=== PATIENT | female | born 1940 | race Caucasian/White ===

== ENCOUNTER 2023-03-31 16:47 | Emergency (ER) | payer MEDICARE, MEDICAID, SELFPAY ==
[2023-03-31 16:50] VITALS: BP 155/85; PULSE 108; RESP 16; TEMP 36.7; O2SAT 98; BMI 24.7
--- NOTE | 2023-03-31 17:04 | ECG_ITS ---
[facility] Test Date: 2023-03-31 Pat Name: Jamie Tracy Department: Room: Gender: Female Manager Care Management: : 1940 Requested By: Romeo Shaffer Order Number: [id number] Jesica MD: Luis Eduardo Ott M.D. Measurements Intervals [place] Rate: 108 P: 76 NM: 144 QRS: 28 QRSD: 90 T: 70 QT: 310 QTc: 416 Interpretive Statements SINUS TACHYCARDIA WITH OCCASIONAL SUPRAVENTRICULAR PREMATURE COMPLEXES LOW QRS VOLTAGE IN PRECORDIAL LEADS [QRS DEFLECTION < 1.0 mV IN CHEST LEADS] SEPTAL MYOCARDIAL INFARCTION , OF INDETERMINATE AGE [40+ ms Q WAVE IN V1/V2] No previous ECG available for comparison Electronically Signed On 03-31-2023 17:56:52 CDT by Luis Eduardo Ott M.D. [id number]
--- NOTE | 2023-03-31 17:14 | XRR_ITS ---
PROCEDURE INFORMATION: Exam: XR Chest Exam date and time: 03/31/2023 5:28 PM Age: 82 years old Clinical indication: Other: Chf TECHNIQUE: Imaging protocol: Radiologic exam of the chest. Views: 1 view. COMPARISON: No relevant prior studies available. FINDINGS: Lungs: The lungs are hyperinflated but free of acute disease. Pleural spaces: Unremarkable. No pleural effusion. No pneumothorax. Heart/Mediastinum: Unremarkable. No cardiomegaly. Bones/joints: Unremarkable. XR/XR chest 1V portable [id number] IMPRESSION: No acute findings.
--- NOTE | 2023-03-31 17:27 | W.ED.EXTPRO ---
Documented by User: Romeo Akhtar DO 03/31/23 18:49 HPI - Extremity Problem General: Chief complaint: Extremity Problem,Nontraumatic Stated complaint: swollen legs Time Seen by Provider: 03/31/23 17:16 Source: patient Mode of arrival: ambulatory History of Present Illness: 82-year-old female presents emergency room complaining of leg swelling and discomfort. She started to have some bulla formation with drainage. She denies any chest pain orthopnea or PND. Last MD Complaint: extremity swelling Location: lower extremity Relieving factors: nothing Exacerbating factors: nothing Associated symptoms: Reports myalgias; Deny chest pain, fever(s), rash or short of breath Review of Systems Const: Reports: fatigue; Denies: fever(s) or chills Card: Reports: edema and swelling of feet/ankles; Denies: chest pain Resp: Denies: dyspnea, productive cough or non-productive cough GI: Denies: abdominal pain, nausea, vomiting, hematemesis, coffee ground emesis, diarrhea, constipation, bloating, hematochezia or melena : Denies: flank pain, difficulty voiding, dysuria, urinary frequency or urinary urgency Skin/Breast: Denies: rash or pruritus Physical Exam Const: GENERAL APPEARANCE: cooperative and comfortable ORIENTATION/CONSCIOUSNESS: Yes awake, Yes oriented to person, Yes oriented to place and Yes oriented to time HENMT: COMMON NORMALS: normocephalic, atraumatic and hearing grossly normal bilaterally HEAD & SCALP: normocephalic and atraumatic Resp: COMMON NORMALS: normal respiratory effort, No retractions, No use of accessory muscles and clear to auscultation bilaterally AUSCULTATION: clear to auscultation bilaterally Cardio: COMMON NORMALS: regular rate, regular rhythm and No murmurs present (Cardio) RATE: regular rate RHYTHM: regular rhythm GI: COMMON NORMALS: Soft to palpation and No hepatosplenomegaly present AUSCULTATION: Yes normoactive bowel sounds PALPATION: Yes Soft to palpation, No Tenderness to palpation present (GI), No Guarding due to palpation present (GI) and Yes No hepatosplenomegaly present Extremity: COMMON NORMALS: capillary refill normal and no calf tenderness OTHER: Lower extremities bilaterally with bullous formation and serous drainage with skin Neuro: SENSORIUM/ORIENTATION: Yes oriented to person, Yes oriented to place and Yes oriented to time Skin: COMMON NORMALS: no rashes or lesions noted GENERAL SKIN EXAM: no rashes or lesions noted Course Vital Signs: Vital signs: Vital Signs Temperature 98.0 F 03/31/23 16:50 Pulse Rate 108 H 03/31/23 16:50 Respiratory Rate 16 03/31/23 16:50 Blood Pressure 155/85 03/31/23 16:50 Pulse Oximetry 98 03/31/23 16:50 MDM - Extremity (Nontraumatic) Medical Decision Making Care signed out to Dr. Ko At change of shift. See final notes for diagnosis and disposition. Lab Data 03/31/23 17:46 03/31/23 17:46 Radiology Impressions Chest X-Ray 03/31/23 17:14 IMPRESSION: No acute findings. Laboratory Results WBC 20.30 10^3/uL (3.29-11.43) H 03/31/23 17:46 RBC 4.11 10^6/uL (3.85-5.65) 03/31/23 17:46 Hgb 11.10 g/dL (11.27-16.99) L 03/31/23 17:46 Hct 34.6 % (36-47) L 03/31/23 17:46 MCV 84.2 fl (85-98) L 03/31/23 17:46 MCH 27.0 pg (27-33) 03/31/23 17:46 MCHC 32.1 g/dL (30-55) 03/31/23 17:46 RDW 19.0 % (12.1-15.1) H 03/31/23 17:46 Plt Count 554 10^3/cmm (157-399) H 03/31/23 17:46 MPV 9.2 fL (7.4-10.4) 03/31/23 17:46 Neut % (Auto) 85.6 % 03/31/23 17:46 Lymph % (Auto) 5.2 % 03/31/23 17:46 [place] % (Auto) 8.0 % 03/31/23 17:46 Eos % (Auto) 0.3 % 03/31/23 17:46 Baso % (Auto) 0.1 % 03/31/23 17:46 Neut # (Auto) 17.36 10^3/uL (1.8-7.7) H 03/31/23 17:46 Lymph # (Auto) 1.1 10^3/uL (0.8-4.8) 03/31/23 17:46 [place] # (Auto) 1.6 10^3/uL (0.2-0.9) H 03/31/23 17:46 Eos # (Auto) 0.1 10^3/uL (0.0-0.8) 03/31/23 17:46 Baso # (Auto) 0.0 10^3/uL (0.0-0.1) 03/31/23 17:46 Nucleated RBC % (auto) 0 % 03/31/23 17:46 Nucleated RBCs # 0.0 /100WBC 03/31/23 17:46 Sodium 127 mmol/L (136-145) L 03/31/23 17:46 Potassium 4.3 mmol/L (3.5-5.1) 03/31/23 17:46 Chloride 91 mmol/L (98-107) L 03/31/23 17:46 Carbon Dioxide 23 mmol/L (22-29) 03/31/23 17:46 Anion Gap 17.3 (5-19) 03/31/23 17:46 BUN 16 mg/dL (8-23) 03/31/23 17:46 Creatinine 0.6 mg/dL (0.5-0.9) 03/31/23 17:46 GFR Calculation Not Reportable 03/31/23 17:46 Glucose 72 mg/dL (65-115) 03/31/23 17:46 Calculated Osmolality 264 mOsm/kg (285-295) L 03/31/23 17:46 Calcium 8.3 mg/dL (8.5-10.5) L 03/31/23 17:46 Total Bilirubin 1.0 mg/dL (0.15-1.2) 03/31/23 17:46 AST 76 U/L (0-32) H 03/31/23 17:46 ALT 22 U/L (0-33) 03/31/23 17:46 Alkaline Phosphatase 345 U/L (35-105) H 03/31/23 17:46 NT-Pro-B Natriuret Pep 3195 pg/mL (0-450) H 03/31/23 17:46 Total Protein 6.2 g/dL (6.6-8.7) L 03/31/23 17:46 Albumin 2.7 g/dL (3.5-5.2) L 03/31/23 17:46 Globulin 3.5 g/dL (1.3-4.6) 03/31/23 17:46 Urine Color Yellow (Yellow) 03/31/23 18:45 Urine Appearance Sl hazy (CLEAR) A 03/31/23 18:45 Urine pH 5 (5-7) 03/31/23 18:45 Ur Specific [place] 1.025 (1.005-1.030) 03/31/23 18:45 Urine Protein 1+ (Negative) H 03/31/23 18:45 Urine Glucose (UA) Norm (Normal) 03/31/23 18:45 Urine Ketones 1+ (Negative) H 03/31/23 18:45 Urine Blood 2+ (Negative) H 03/31/23 18:45 Urine Nitrate Negative (Negative) 03/31/23 18:45 Urine Bilirubin 1+ (Negative) H 03/31/23 18:45 Urine Urobilinogen Norm mg/dL (Negative) 03/31/23 18:45 Ur Leukocyte Esterase 2+ (Negative) H 03/31/23 18:45 Urine RBC 5-10 /hpf (0-2) H 03/31/23 18:45 Urine WBC 15-25 /hpf (0-5) H 03/31/23 18:45 Ur Squamous Epith Cells 5-10 /hpf (0-5) H 03/31/23 18:45 Amorphous Sediment Not Reportable 03/31/23 18:45 Urine Bacteria Trace /hpf (NONE) 03/31/23 18:45 Discharge Plan Discharge Patient Disposition: Home Clinical Impression: Acute hyponatremia, Leukocytosis Urinary tract infection Qualifiers: Urinary tract infection type: acute cystitis Hematuria presence: with hematuria Qualified Code(s): N30.01 - Acute cystitis with hematuria Edema Qualifiers: Edema type: localized Qualified Code(s): R60.0 - Localized edema Condition: Stable Prescriptions: New furosemide [Lasix] 40 mg tablet 40 mg PO QAM Qty: 5 0RF ciprofloxacin HCl 500 mg tablet 500 mg PO Q12H Qty: 20 0RF Discharge Orders: Discharge ED (Routine); Ordered 03/31/23 Ordered By: Chip Ko Patient Instructions: Hyponatremia (ED), Edema (ED), Urinary Tract Infection - Women Activity Restrictions/Additional Instructions: Please take all medicine as directed. Please follow-up with your family practice physician within the next 7 days for further evaluation and treatment. If your symptoms worsen please feel free to return to the ER. Coding Level of Care Code ED Assistant Technician for Chg Fwd Documented by User: Chip Ko DO 03/31/23 19:59 HPI - Extremity Problem General: Chief complaint: Extremity Problem,Nontraumatic Stated complaint: swollen legs Time Seen by Provider: 03/31/23 17:16 Course Vital Signs: Vital signs: Vital Signs Temperature 98.0 F 03/31/23 16:50 Pulse Rate 108 H 03/31/23 16:50 Respiratory Rate 16 03/31/23 16:50 Blood Pressure 155/85 03/31/23 16:50 Pulse Oximetry 98 03/31/23 16:50 MDM - Extremity (Nontraumatic) Medical Decision Making Care signed out to Dr. Ko At change of shift. See final notes for diagnosis and disposition. Lab work revealed a white count elevated at 20,000, hemoglobin hematocrit of 11.1 and 34.6 with platelets of 554. Sodium was low at 127. BNP was elevated at 3195, UA showed potential signs of urinary tract infection. Patient was not desiring to stay in the hospital for further work-up and treatment due to her elevated white count, urinary tract infection and low sodium, patient be discharged on an antibiotic Lasix and will be instructed to follow-up with her primary care physician for further evaluation treatment and testing. Lab Data 03/31/23 17:46 03/31/23 17:46 Radiology Impressions Chest X-Ray 03/31/23 17:14 IMPRESSION: No acute findings. Laboratory Results WBC 20.30 10^3/uL (3.29-11.43) H 03/31/23 17:46 RBC 4.11 10^6/uL (3.85-5.65) 03/31/23 17:46 Hgb 11.10 g/dL (11.27-16.99) L 03/31/23 17:46 Hct 34.6 % (36-47) L 03/31/23 17:46 MCV 84.2 fl (85-98) L 03/31/23 17:46 MCH 27.0 pg (27-33) 03/31/23 17:46 MCHC 32.1 g/dL (30-55) 03/31/23 17:46 RDW 19.0 % (12.1-15.1) H 03/31/23 17:46 Plt Count 554 10^3/cmm (157-399) H 03/31/23 17:46 MPV 9.2 fL (7.4-10.4) 03/31/23 17:46 Neut % (Auto) 85.6 % 03/31/23 17:46 Lymph % (Auto) 5.2 % 03/31/23 17:46 [place] % (Auto) 8.0 % 03/31/23 17:46 Eos % (Auto) 0.3 % 03/31/23 17:46 Baso % (Auto) 0.1 % 03/31/23 17:46 Neut # (Auto) 17.36 10^3/uL (1.8-7.7) H 03/31/23 17:46 Lymph # (Auto) 1.1 10^3/uL (0.8-4.8) 03/31/23 17:46 [place] # (Auto) 1.6 10^3/uL (0.2-0.9) H 03/31/23 17:46 Eos # (Auto) 0.1 10^3/uL (0.0-0.8) 03/31/23 17:46 Baso # (Auto) 0.0 10^3/uL (0.0-0.1) 03/31/23 17:46 Nucleated RBC % (auto) 0 % 03/31/23 17:46 Nucleated RBCs # 0.0 /100WBC 03/31/23 17:46 Sodium 127 mmol/L (136-145) L 03/31/23 17:46 Potassium 4.3 mmol/L (3.5-5.1) 03/31/23 17:46 Chloride 91 mmol/L (98-107) L 03/31/23 17:46 Carbon Dioxide 23 mmol/L (22-29) 03/31/23 17:46 Anion Gap 17.3 (5-19) 03/31/23 17:46 BUN 16 mg/dL (8-23) 03/31/23 17:46 Creatinine 0.6 mg/dL (0.5-0.9) 03/31/23 17:46 GFR Calculation Not Reportable 03/31/23 17:46 Glucose 72 mg/dL (65-115) 03/31/23 17:46 Calculated Osmolality 264 mOsm/kg (285-295) L 03/31/23 17:46 Calcium 8.3 mg/dL (8.5-10.5) L 03/31/23 17:46 Total Bilirubin 1.0 mg/dL (0.15-1.2) 03/31/23 17:46 AST 76 U/L (0-32) H 03/31/23 17:46 ALT 22 U/L (0-33) 03/31/23 17:46 Alkaline Phosphatase 345 U/L (35-105) H 03/31/23 17:46 NT-Pro-B Natriuret Pep 3195 pg/mL (0-450) H 03/31/23 17:46 Total Protein 6.2 g/dL (6.6-8.7) L 03/31/23 17:46 Albumin 2.7 g/dL (3.5-5.2) L 03/31/23 17:46 Globulin 3.5 g/dL (1.3-4.6) 03/31/23 17:46 Urine Color Yellow (Yellow) 03/31/23 18:45 Urine Appearance Sl hazy (CLEAR) A 03/31/23 18:45 Urine pH 5 (5-7) 03/31/23 18:45 Ur Specific [place] 1.025 (1.005-1.030) 03/31/23 18:45 Urine Protein 1+ (Negative) H 03/31/23 18:45 Urine Glucose (UA) Norm (Normal) 03/31/23 18:45 Urine Ketones 1+ (Negative) H 03/31/23 18:45 Urine Blood 2+ (Negative) H 09/12/23 18:45 Urine Nitrate Negative (Negative) 03/31/23 18:45 Urine Bilirubin 1+ (Negative) H 03/31/23 18:45 Urine Urobilinogen Norm mg/dL (Negative) 03/31/23 18:45 Ur Leukocyte Esterase 2+ (Negative) H 03/31/23 18:45 Urine RBC 5-10 /hpf (0-2) H 03/31/23 18:45 Urine WBC 15-25 /hpf (0-5) H 03/31/23 18:45 Ur Squamous Epith Cells 5-10 /hpf (0-5) H 03/31/23 18:45 Amorphous Sediment Not Reportable 03/31/23 18:45 Urine Bacteria Trace /hpf (NONE) 03/31/23 18:45 Discharge Plan Discharge Patient Disposition: Home Clinical Impression: Acute hyponatremia, Leukocytosis Urinary tract infection Qualifiers: Urinary tract infection type: acute cystitis Hematuria presence: with hematuria Qualified Code(s): N30.01 - Acute cystitis with hematuria Edema Qualifiers: Edema type: localized Qualified Code(s): R60.0 - Localized edema Condition: Stable Prescriptions: New furosemide [Lasix] 40 mg tablet 40 mg PO QAM Qty: 5 0RF ciprofloxacin HCl 500 mg tablet 500 mg PO Q12H Qty: 20 0RF Discharge Orders: Discharge ED (Routine); Ordered 03/31/23 Ordered By: Chip Ko Patient Instructions: Hyponatremia (ED), Edema (ED), Urinary Tract Infection - Women Activity Restrictions/Additional Instructions: Please take all medicine as directed. Please follow-up with your family practice physician within the next 7 days for further evaluation and treatment. If your symptoms worsen please feel free to return to the ER. Coding Level of Care Code ED Assistant Technician for Zaid Berger
[2023-03-31 17:57] LABS: Basophils % 0.1 %; Eosinophils # 0.1 10^3/uL (0.0-0.8); Eosinophils % 0.3 %; Hematocrit 34.6 % (36-47); Lymphocytes # 1.1 10^3/uL (0.8-4.8); Lymphocytes % 5.2 %; Mean Corpuscular HGB Conc 32.1 g/dL (30-55); Mean Corpuscular Volume 84.2 fl (85-98); Mean Platelet Volume 9.2 fL (7.4-10.4); Monocytes # 1.6 10^3/uL (0.2-0.9); Neutrophils # 17.36 10^3/uL (1.8-7.7); Neutrophils % 85.6 %; Nucleated Red Blood Cells % 0 %; Platelet Count 554 10^3/cmm (157-399); Red Blood Count 4.11 10^6/uL (3.85-5.65)
[2023-03-31] MEDS: FUROsemide 10 mg/mL SDV 4mL 40 MG IVP (18:12)
[2023-03-31 18:25] LABS: Alanine Aminotransferase 22 U/L (0-33); Albumin Level 2.7 g/dL (3.5-5.2); Alkaline Phosphatase 345 U/L (35-105); Anion Gap 17.3 (5-19); Aspartate Amino Transferase 76 U/L (0-32); Blood Urea Nitrogen 16 mg/dL (8-23); Calcium 8.3 mg/dL (8.5-10.5); Carbon Dioxide 23 mmol/L (22-29); Chloride 91 mmol/L (98-107); Creatinine Clr Calc Pharmacy 46.6929; Globulin 3.5 g/dL (1.3-4.6); Glucose 72 mg/dL (65-115); NT Pro B Type Natriuretic Pept 3195 pg/mL (0-450); Osmolality Calculated 264 mOsm/kg (285-295); Potassium 4.3 mmol/L (3.5-5.1); Sodium 127 mmol/L (136-145); Total Protein 6.2 g/dL (6.6-8.7)
[2023-03-31 19:11] LABS: Add Urine Microscopic? YES; Bilirubin Urine 1+ (Negative); Blood Urine 2+ (Negative); Glucose Urine UA Norm (Normal); Ketones Urine 1+ (Negative); Leukocyte Esterase Urine 2+ (Negative); Nitrate Urine Negative (Negative); Protein Urine 1+ (Negative); Specific Gravity, Urine 1.025 (1.005-1.030); Urine Appearance SL Hazy (CLEAR); Urine Color Yellow (Yellow); Urobilinogen Urine Norm (Negative); pH Urine 5 (5-7)
[2023-03-31 19:12] LABS: Add Urine Culture? Yes; Bacteria Urine TRACE /hpf; WBC Urine 15-25 /hpf (0-5)
[2023-03-31 19:24] VITALS: BP 161/89; PULSE 100; RESP 16; O2SAT 97
--- NOTE | 2023-03-31 19:55 | PC.NURSE ---
WEnt to give patient her zofran and she declined. States, i am not sick to my stomach I just got hot . Wants me to tell the dr to hurry up because it is past her bedtime. Provider notified about the zofran and that pt would like to get out of here.
[2023-03-31] MEDS: ciprofloxacin 500 mg Tablet PO (20:03)
[2023-03-31 20:18] VITALS: BP 148/94; PULSE 101; O2SAT 96
== END 2023-03-31 20:20 | disposition home or self-care (01) ==
PROVIDERS: Emergency Medicine; Nurse Practitioner Family; Emergency Provider Family Medicine; PCP Nurse Practitioner Family
DX: N30.01 Acute cystitis with hematuria (principal); R60.0 Localized edema; E87.1 Hypo-osmolality and hyponatremia; D72.829 Elevated white blood cell count, unspecified
CPT/HCPCS: 71045; 80053; 81001; 83880; 85025; 87086; 93005; 96374; 99285; J1940

== ENCOUNTER 2023-04-06 18:05 | Inpatient (IN) | payer MEDICARE, MEDICAID, OTHER, SELFPAY ==
[2023-04-06 18:07] VITALS: BP 101/66; PULSE 71; RESP 17; TEMP 36.3; O2SAT 99; BMI 27.4
[2023-04-06 18:52] VITALS: BP 89/41; PULSE 73; O2SAT 99
--- NOTE | 2023-04-06 19:38 | W.ED.FEMALGU ---
HPI - Female Genitourinary General: Chief complaint: Urogenital-Female Stated complaint: can't urinate Time Seen by Provider: 04/06/23 18:20 History of Present Illness: 82-year-old female brought to emergency room by daughter due to decreased urine output and abdominal distention within the past few days. Daughter reveals that patient recently was seen and evaluated and diagnosed UTI. Currently taking Cipro. Patient denies any fever, chills, nausea or vomiting at this time. Patient is complaining of diffuse abdominal pain with some abdomen distention. Associated symptoms: Reports nausea; Deny headache(s) or syncope Review of Systems General: Reports: 10 or more systems reviewed and unremarkable except in HPI and below Const: Denies: fever(s), chills, body aches, change in appetite, change in weight, fatigue, night sweats, diaphoresis, change in sleep pattern, daytime sleepiness or snoring Card: Reports: chest pain; Denies: palpitations, irregular heart rhythm, edema, swelling of feet/ankles, lightheadedness, syncope or pre-syncope Resp: Denies: dyspnea, productive cough or non-productive cough GI: Reports: nausea; Denies: vomiting : Reports: difficulty voiding; Denies: flank pain, dysuria, urinary frequency, urinary urgency, urinary hesitancy, dribbling, nocturia, oliguria, urinary incontinence, hematuria, genital lesions, genital pruritis, vaginal dryness, vaginal odor or vaginal bleeding Neuro: Denies: headache(s), numbness in extremities or weakness in extremities Physical Exam Const: COMMON NORMALS: patient oriented x3 Neck/C-Spine: COMMON NORMALS: no meningeal signs Chest: COMMONS NORMALS: normal inspection of the chest, normal palpation of entire chest wall, normal inspection of the breasts and normal palpation of the breasts Breast/axilla inspection: Yes normal inspection of the breasts BREAST/AXILLA PALPATION: Yes normal palpation of the breasts Resp: COMMON NORMALS: normal respiratory effort; negative for No use of accessory muscles and negative for clear to auscultation bilaterally AUSCULTATION: not clear to auscultation bilaterally Cardio: COMMON NORMALS: regular rate, regular rhythm, S1 normal heart sound present and S2 normal heart sound present JUGULAR VENOUS DISTENTION: no JVD PALPATION: normal PMI RATE: regular rate RHYTHM: regular rhythm HEART SOUNDS: S1 normal heart sound present and S2 normal heart sound present GI: COMMON NORMALS: Soft to palpation INSPECTION: Yes abdominal distension AUSCULTATION: Yes normoactive bowel sounds PALPATION: Yes Soft to palpation, No Tenderness to palpation present (GI), No Guarding due to palpation present (GI) and No Rigid due to palpation PERCUSSION: normal to percussion Extremity: GENERAL: No amputation, No AV fistula, No calf tenderness, No carpopedal spasm, No clubbing, No cyanosis, No deformity, Yes edema, No mottling and No pulses abnormal OTHER: +2 pitting edema bilaterally Neuro: PAMELA COMA SCALE: document GCS findings COMMON NORMALS: patient oriented x3 MENINGEAL SIGNS: Yes no meningeal signs CRANIAL NERVES: Yes CN normal except as noted COORDINATION/BALANCE: [id number] test normal SPEECH: speech normal COORDINATION: [id number] test normal Skin: COMMON NORMALS: no rashes or lesions noted, no wounds, turgor normal, no jaundice, no petechiae and no mottling GENERAL SKIN EXAM: no rashes or lesions noted and turgor normal Course Vital Signs: Vital signs: Vital Signs Temperature 98.2 F 04/07/23 07:48 Pulse Rate 76 04/07/23 07:48 Respiratory Rate 13 04/07/23 07:48 Blood Pressure 103/60 04/07/23 07:48 Pulse Oximetry 96 04/07/23 07:48 Oxygen Delivery Me thod Room Air 04/07/23 07:48 MDM - Female Medical Decision Making Patient made comfortable emergency room had extensive work-up done including CBC, CMP, CT scan of the abdomen pelvis. Patient was found to have acute renal insufficiency, dehydration. Hypotension. Patient was given IV fluid and admitted for further evaluation and treatment. Discussed patient with the hospitalist. Differential Diagnosis Likely abdominal pain, acute appendicitis, calculus of kidney, constipation, diverticulitis, endometriosis, gastroenteritis, pancreatitis and small bowel obstruction Lab Data 04/07/23 09:45 04/06/23 19:41 Radiology Impressions Abdomen/Pelvis CT 04/06/23 21:19 IMPRESSION: 1. Suspected partially calcified mass in the cecum. This could represent primary colon malignancy. Follow-up with colonoscopy is recommended. 2. Severe hepatic metastatic disease. 3. Nodularity along the greater omentum is suspicious for intraperitoneal metastasis. 4. Enlarged mesenteric lymph nodes, suspicious for metastasis. 5. Moderate ascites. 6. Cholelithiasis. 7. Pulmonary nodules. Metastatic disease is not excluded. COMMENTS: Consistent with the [employer]'s Incidental Findings Committee white paper (J Am Dheeraj Radiol 2017): For any incidental adrenal lesion greater than or equal to 1 cm but less than or equal to 4 cm classified in this report as benign, likely benign, or containing fat (including classification as an adenoma or myelolipoma), no follow-up imaging is recommended per consensus recommendations based on imaging criteria. Further lab evaluation could be pursued if warranted based on clinical findings. Laboratory Results WBC 9.93 10^3/uL (3.29-11.43) 04/06/23 19:41 RBC 4.77 10^6/uL (3.85-5.65) 04/06/23 19:41 Hgb 13.20 g/dL (11.27-16.99) 04/06/23 19:41 Hct 40.8 % (36-47) 04/06/23 19:41 MCV 85.5 fl (85-98) 04/06/23 19:41 MCH 27.7 pg (27-33) 04/06/23 19:41 MCHC 32.4 g/dL (30-55) 04/06/23 19:41 RDW 19.9 % (12.1-15.1) H 04/06/23 19:41 Plt Count 620 10^3/cmm (157-399) H 04/06/23 19:41 MPV 9.2 fL (7.4-10.4) 04/06/23 19:41 Neut % (Auto) 87.2 % 04/06/23 19:41 Lymph % (Auto) 7.9 % 04/06/23 19:41 [place] % (Auto) 3.3 % 04/06/23 19:41 Eos % (Auto) 0.3 % 04/06/23 19:41 Baso % (Auto) 0.4 % 04/06/23 19:41 Neut # (Auto) 8.66 10^3/uL (1.8-7.7) H 04/06/23 19:41 Lymph # (Auto) 0.8 10^3/uL (0.8-4.8) 04/06/23 19:41 [place] # (Auto) 0.3 10^3/uL (0.2-0.9) 04/06/23 19:41 Eos # (Auto) 0.0 10^3/uL (0.0-0.8) 04/06/23 19:41 Baso # (Auto) 0.0 10^3/uL (0.0-0.1) 04/06/23 19:41 Nucleated RBC % (auto) 0 % 04/06/23 19:41 Nucleated RBCs # 0.0 /100WBC 04/06/23 19:41 Sodium 122 mmol/L (136-145) L 04/06/23 19:41 Potassium 5.0 mmol/L (3.5-5.1) 04/06/23 19:41 Chloride 83 mmol/L (98-107) L 04/06/23 19:41 Carbon Dioxide 17 mmol/L (22-29) L 04/06/23 19:41 Anion Gap 27.0 (5-19) H 04/06/23 19:41 BUN 45 mg/dL (8-23) H 04/06/23 19:41 Creatinine 2.6 mg/dL (0.5-0.9) H 04/06/23 19:41 GFR Calculation Not Reportable 04/06/23 19:41 Glucose 98 mg/dL (65-115) 04/06/23 19:41 Calculated Osmolality 266 mOsm/kg (285-295) L 04/06/23 19:41 Lactic Acid 6.0 mmol/L (0.5-2.2) H* 04/06/23 19:41 Lactic Acid (Sepsis) 5.0 mmol/L (0.5-2.2) H* 04/06/23 22:41 Uric Acid 15.4 mg/dL (2.4-5.7) H 04/06/23 19:41 Calcium 7.3 mg/dL (8.5-10.5) L 04/06/23 19:41 Total Bilirubin 1.4 mg/dL (0.15-1.2) H 04/06/23 19:41 AST 311 U/L (0-32) H 04/06/23 19:41 ALT 72 U/L (0-33) H 04/06/23 19:41 Alkaline Phosphatase 558 U/L (35-105) H 04/06/23 19:41 Lactate Dehydrogenase 5559 U/L (135-214) H 04/06/23 19:41 Total Protein 7.1 g/dL (6.6-8.7) 04/06/23 19:41 Albumin 2.8 g/dL (3.5-5.2) L 04/06/23 19:41 Globulin 4.3 g/dL (1.3-4.6) 04/06/23 19:41 TSH 14.06 uIU/mL (0.27-4.20) H 04/06/23 19:40 Urine Color Yellow (Yellow) 04/06/23 20:47 Urine Appearance Clear (CLEAR) 04/06/23 20:47 Urine pH 5 (5-7) 04/06/23 20:47 Ur Specific [place] 1.020 (1.005-1.030) 04/06/23 20:47 Urine Protein Trace (Negative) 04/06/23 20:47 Urine Glucose (UA) Norm (Normal) 04/06/23 20:47 Urine Ketones Negative (Negative) 04/06/23 20:47 Urine Blood Neg (Negative) 04/06/23 20:47 Urine Nitrate Negative (Negative) 04/06/23 20:47 Urine Bilirubin Neg (Negative) 04/06/23 20:47 Urine Urobilinogen Norm mg/dL (Negative) 04/06/23 20:47 Ur Leukocyte Esterase Negative (Negative) 04/06/23 20:47 Urine RBC None /hpf (0-2) 04/06/23 20:47 Urine WBC 0-4 /hpf (0-5) H 04/06/23 20:47 Ur Squamous Epith Cells 0-4 /hpf (0-5) H 04/06/23 20:47 Amorphous Sediment 2+ /hpf 04/06/23 20:47 Urine Bacteria 1+ /hpf (NONE) H 04/06/23 20:47 XR interpretation done by ED provider, pending radiology final review Discharge Plan Discharge Patient Disposition: Admitted As Inpatient Admit Provider: Ale Rao Clinical Impression: Edema, Colonic mass, Transaminitis, Metastatic disease, Acute renal insufficiency, Dehydration, Acute hyponatremia Condition: Stable Coding Level of Care Code ED [place] Machine Operator Helper for Zaid Berger
[2023-04-06 20:08] LABS: Basophils % 0.4 %; Eosinophils % 0.3 %; Hematocrit 40.8 % (36-47); Lymphocytes # 0.8 10^3/uL (0.8-4.8); Lymphocytes % 7.9 %; Mean Corpuscular HGB Conc 32.4 g/dL (30-55); Mean Corpuscular Hemoglobin 27.7 pg (27-33); Mean Corpuscular Volume 85.5 fl (85-98); Mean Platelet Volume 9.2 fL (7.4-10.4); Monocytes # 0.3 10^3/uL (0.2-0.9); Monocytes % 3.3 %; Neutrophils # 8.66 10^3/uL (1.8-7.7); Neutrophils % 87.2 %; Nucleated Red Blood Cells % 0 %; Platelet Count 620 10^3/cmm (157-399); Red Blood Count 4.77 10^6/uL (3.85-5.65); Red Cell Distribution Width 19.9 % (12.1-15.1); White Blood Count 9.93 10^3/uL (3.29-11.43)
[2023-04-06 20:29] LABS: Alanine Aminotransferase 72 U/L (0-33); Albumin Level 2.8 g/dL (3.5-5.2); Alkaline Phosphatase 558 U/L (35-105); Aspartate Amino Transferase 311 U/L (0-32); Blood Urea Nitrogen 45 mg/dL (8-23); Calcium 7.3 mg/dL (8.5-10.5); Carbon Dioxide 17 mmol/L (22-29); Chloride 83 mmol/L (98-107); Globulin 4.3 g/dL (1.3-4.6); Glucose 98 mg/dL (65-115); Osmolality Calculated 266 mOsm/kg (285-295); Sodium 122 mmol/L (136-145); Total Bilirubin 1.4 mg/dL (0.15-1.2); Total Protein 7.1 g/dL (6.6-8.7)
[2023-04-06 20:59] LABS: Add Urine Microscopic? YES; Bilirubin Urine Neg (Negative); Blood Urine Neg (Negative); Glucose Urine UA Norm (Normal); Ketones Urine Negative (Negative); Leukocyte Esterase Urine Negative (Negative); Nitrate Urine Negative (Negative); Protein Urine Trace (Negative); Urine Appearance Clear (CLEAR); Urine Color Yellow (Yellow); Urobilinogen Urine Norm (Negative); pH Urine 5 (5-7)
[2023-04-06 21:08] LABS: Bacteria Urine 1+ /hpf; Squamous Epithelial Cell Urine 0-4 /hpf (0-5); WBC Urine 0-4 /hpf (0-5)
[2023-04-06 21:09] LABS: Add Urine Culture? No; Amorphous Sediment Urine 2+ /hpf
--- NOTE | 2023-04-06 21:19 | CTR_ITS ---
PROCEDURE INFORMATION: Exam: CT Abdomen And Pelvis Without Contrast Exam date and time: 04/06/2023 10:13 PM Age: 82 years old Clinical indication: Abdominal pain; Generalized; Additional info: Abd pain TECHNIQUE: Imaging protocol: Computed tomography of the abdomen and pelvis without contrast. Radiation optimization: All CT scans at this facility use at least one of these dose optimization techniques: automated exposure control; mA and/or kV adjustment per patient size (includes targeted exams where dose is matched to clinical indication); or iterative reconstruction. REPORTING DATA: Count of CT and Cardiac NM exams in prior 12 months: This patient has received 0 known CTs and 0 known cardiac nuclear medicine studies in the 12 months prior to the current study. COMPARISON: CR (CHEST, ) 03/31/2023 5:28 PM RADIATION DOSE METRICS: Total DLP (mGy-cm): 444.47 FINDINGS: Tubes, catheters and devices: Pessary in place. Lungs: 6 mm lingular nodule. 7 mm irregular nodule or scar in the right lower lobe. Diaphragm: Small hiatal hernia. Liver: Numerous low-density nodules scattered throughout the liver, the largest individual nodule measuring at least 5.9 cm. Gallbladder and bile ducts: Multiple calcified stones in the gallbladder and gallbladder neck. No wall thickening. The bile ducts are normal. Pancreas: Atrophic pancreas. Spleen: Normal. No splenomegaly. Adrenal glands: 1.8 cm right adrenal nodule, Hounsfield units less than 10, consistent with a benign adenoma. The left adrenal is normal. Kidneys and ureters: Normal. No hydronephrosis. Stomach and bowel: Suspected partially calcified mass in the cecum. The stomach and small bowel are unremarkable. No obstruction. Appendix: No evidence of appendicitis. Intraperitoneal space: Moderate ascites. No free peritoneal air. Soft tissue nodularity along the greater omentum, measuring up to 3.5 cm in thickness. Vasculature: Arterial calcifications. No aneurysm. Lymph nodes: Multiple enlarged superior right mesenteric lymph nodes, the largest measuring 3.1 cm. Urinary bladder: Jones catheter in a decompressed urinary bladder. Reproductive: The uterus and ovaries are unremarkable. Bones/joints: Scoliosis and degenerative changes of the spine. No fracture or destructive lesion identified. Soft tissues: Body wall edema. 2.4 cm probable sebaceous cyst in the inferior right breast. CT/CT abdomen pelvis wo con [id number] IMPRESSION: 1. Suspected partially calcified mass in the cecum. This could represent primary colon malignancy. Follow-up with colonoscopy is recommended. 2. Severe hepatic metastatic disease. 3. Nodularity along the greater omentum is suspicious for intraperitoneal metastasis. 4. Enlarged mesenteric lymph nodes, suspicious for metastasis. 5. Moderate ascites. 6. Cholelithiasis. 7. Pulmonary nodules. Metastatic disease is not excluded. COMMENTS: Consistent with the [employer]'s Incidental Findings Committee white paper (J Am Dheeraj Radiol 2017): For any incidental adrenal lesion greater than or equal to 1 cm but less than or equal to 4 cm classified in this report as benign, likely benign, or containing fat (including classification as an adenoma or myelolipoma), no follow-up imaging is recommended per consensus recommendations based on imaging criteria. Further lab evaluation could be pursued if warranted based on clinical findings.
[2023-04-06 21:51] LABS: Reflex Lactate Order REFLEX LACTIC ORDERD
[2023-04-06] MEDS: FUROsemide 10 mg/mL SDV 2mL 20 MG IVP (22:06)
[2023-04-06] MEDS: sodium chloride 0.9% 1,000 ML 999 ML IV (22:06)
[2023-04-06] MEDS: piperacillin-tazobactam 2.25 GM in sodium chloride 0.9% (plus) 50 ML IV (22:26)
[2023-04-06 22:41] VITALS: BP 106/57; PULSE 78; RESP 16; O2SAT 97
[2023-04-06] MEDS: morphine 4 mg/mL SDV 1 mL 2 MG IVP (22:59)
[2023-04-07] VITALS (62 sets, daily range): BP systolic 86–148; BP diastolic 47–89; PULSE 69–112; RESP 13–26; TEMP 36.3–36.8; O2SAT 43–99
[2023-04-07] MEDS: fentaNYL 50 mcg/mL INJ 2mL IVP (00:50)
--- NOTE | 2023-04-07 02:49 | XR_ITS ---
WS: [id number] XR chest 1V portable [id number] REASON FOR EXAM: evaluate for pneumonia FINDINGS: Mild tortuosity the thoracic aorta. No significant cardiomegaly. Calcified granulomas disease in both hemithoraces. Compared to the previous examination of 03/31/2023, there are several linear areas of opacity in the l eft lower lung with opacification of the left costophrenic angle. The chest is otherwise unchanged co mpared to the previous examination. IMPRESSION: Interval abnormality in the left lower lung. Findings suggest atelectasis however an early pneumoniti s cannot be excluded and follow-up is recommended.
[2023-04-07] MEDS: sodium chloride 0.9% 1,000 ML 75 ML IV (03:18)
[2023-04-07] MEDS: enoxaparin 40 mg/0.4 mL Syringe SUBCUT (03:24)
[2023-04-07] MEDS: pantoprazole 40 mg SDV IVP ×2 (03:24→15:03)
[2023-04-07] MEDS: morphine 4 mg/mL SDV 1 mL 2 MG IVP (03:54)
--- NOTE | 2023-04-07 05:23 | USCV_ITS ---
Jamie Tracy Age: 82 Gender: F : 1940 Exam Date: 04/07/2023 12:15 Ordering Phys: Ale Rao MD Technologist: DERRELL Exam Location: [facility] [place] Indication: CHEST PAIN BP: 148 / 89 HR: 79 Rhythm: Sinus Technical Quality: Suboptimal MEASUREMENTS (Male / Female) Normal Values 2D ECHO LVOT Diameter 2.0 cm LV Ejection Fraction MOD 2C 69.9 % LV Ejection Fraction 2C AL 69.1 % LA Diameter 3.1 cm LA Width 2.6 cm LA Height 3.4 cm RA Width 2.9 cm RA Height 3.6 cm Aorta at Sinotubular Diameter 1.6 cm IVC Diameter 1.4 cm M-MODE Aortic Annulus Diameter 2.7 cm LA Ao Ratio MM 1.3 MV E Point Septal Separation 1.1 cm DOPPLER AV Peak Velocity 160.0 cm/s LVOT Peak Velocity 119.0 cm/s AV Area Cont Eq vti 2.1 cm squared AV Area Cont Eq pk 2.2 cm squared MV Peak Velocity 79.0 cm/s MV Area PHT 2.8 cm squared Mitral E to A Ratio 0.9 MV E' Velocity 38.5 cm/s Mitral E to MV E' Ratio 6.0 Mitral E to LV E' Lateral Ratio 4.6 Mitral E to LV E' Septal Ratio 8.9 TR Peak Velocity 243.8 cm/s TR Peak Gradient 23.8 mmHg TR Mean Velocity 216.4 cm/s TR Mean Gradient 18.6 mmHg TR Velocity Time Integral 79.3 cm TV Peak E Velocity 42.0 cm/s Right Atrial Pressure 3.0 mmHg Pulmonary Artery Systolic Pressu 26.8 mmHg PV Peak Velocity 101.0 cm/s RV Acceleration Time 0.1 s RV Ejection Time 0.3 s RV AcT/ET 0.3 FINDINGS Left Ventricle Normal left ventricular size and systolic function, EF 70 %. No regional wall motion abnormalities. Right Ventricle Normal right ventricular size and systolic function. Right Atrium The right atrium is normal in size. Left Atrium Left atrium, upper limit of normal size Mitral Valve Mild mitral annular calcification. Aortic Valve No gross abnormalities noted Tricuspid Valve No gross abnormalities noted Pulmonic Valve Pulmonic valve not well visualized. Pericardium Normal pericardium without effusion. Aorta Normal aorta. IVC Inferior vena cava not visualized. CONCLUSIONS Normal left ventricular size and systolic function, EF 70 %. No regional wall motion abnormalities. Left atrium, upper limit of normal size. No pericardial effusion. No significant valvular abnormalityies. technically difficult study because of the poor ultrasonic window. Dr Raul Beebe MD FACC (Electronically Signed) Final Date: 07 April 2023 17:29 S
--- NOTE | 2023-04-07 05:23 | USCV_ITS ---
Jamie Tracy Age: 82 Gender: F : 1940 Exam Date: 04/07/2023 12:01 Ordering Phys: Ale Rao MD Technologist: DERRELL Exam Location: [facility] [place] Indication: BLE SWELLING HISTORY: Lower extremity swelling. PROCEDURES: Venous duplex imaging was performed in bilateral lower extremities. The following venous structures were evaluated: common femoral vein, profunda vein, proximal portion of the greater saphenous vein, superficial femoral vein, and the popliteal vein. In addition, the posterior tibial and peroneal trunk were evaluated. Serial compression, augmentation maneuvers, and spectral Doppler flow evaluation were performed. FINDINGS: No evidence of DVT seen in any vessel visualized at this time. barbour's cyst seen in left pop fossa CONCLUSIONS No evidence of right lower extremity DVT. No evidence of left lower extremity DVT. popliteal cyst 2.2 x 1.2 x 3.3cmcm Simon Schreiber MD (Electronically Signed) Final Date: 07 April 2023 14:43 S
--- NOTE | 2023-04-07 05:24 | PM.HP ---
Providers/Chief Complaint Admitting Physician: Ale Rao MD Primary Care Provider: Roberto Luara MD Chief Complaint: can't urinate History of Present Illness Jamie Tracy is a 82 year old female without any previously known comorbidities who presents to the emergency room today with 1 month of symptoms. Patient has been experiencing increasing generalized malaise fatigue gait instability and weight loss over the past month. She has had chronic diarrhea over the same timeframe. She presented to the emergency room on March 31, 2023 with complaints of leg swelling and discomfort has been ongoing for the past 2 weeks. She was found to have some bulla formation with drainage. She was started on treatment with Lasix and received an empiric diagnosis of UTI for which she was treated with ciprofloxacin. She did not wish to stay in the hospital on this day. Today patient developed worsening abdominal pain, nausea and vomiting which prompted her daughters to bring her back to the emergency room. She was noted to have multiple lab abnormalities including a sodium of 122, creatinine of 2.6, up from 0.6 on March 31, 2023, lactic acid of 6.0, hypocalcemia, deranged LFTs. CT imaging of the abdomen and pelvis was obtained per my request after discussion with the ER physician which has shown a partially calcified mass within the cecum thought to represent a primary colon malignancy. Severe hepatic metastatic disease largest nodule measuring 5.9 cm. Nodularity along the greater omentum was suspicious for intraperitoneal metastases. Numerous enlarged mesenteric lymph nodes were seen. Incidentally noted pulmonary nodules on visualized images. Chest x-ray below grossly normal. Patient has never had a screening colonoscopy in the past. There is no past history of cancer. No blood in stools as far as the daughter is aware. Patient is diet currently and does not participate in history taking at this time. Wishes to sleep. No fever or chills. Review of Systems General: Reports: ROS unobtainable due to medical condition Medications/Allergies Home Medications Medication Instructions Recorded Confirmed Last Taken Type ciprofloxacin HCl 500 mg tablet 500 mg PO Q12H #20 tabs 03/31/23 04/07/23 Unknown Rx metoprolol tartrate 25 mg tablet 12.5 mg PO BID 04/07/23 04/07/23 Unknown History Allergies Allergy/AdvReac Type Severity Reaction Status Date / Time No Known Allergies Allergy Verified 03/31/23 16:55 Vitals/I&O/Wt Last Vital Signs Temp 97.3 F L 04/07/23 03:51 Pulse 75 04/07/23 04:48 Resp 18 04/07/23 03:54 BP 105/57 04/07/23 03:51 Pulse Ox 98 04/07/23 03:51 O2 Del Method Room Air 04/07/23 03:35 04/06/23 04/06/23 04/07/23 14:59 22:59 06:59 Intake Total 1050 / 1050 Balance 1050 / 1050 Weight last 48 hrs Weight 68.039 kg Physical Exam Narrative: General: No acute distress, ill appearing HEENT: PERRLA, pupils bilaterally equal and reactive, pallors not present Chest: Normal vesicular breath sounds, no added sounds, equal good air entry bilaterally CVS: S1-S2 regular, no murmurs, no tachycardia, no gallops, no rubs Abdomen: Soft, nontender, no organomegaly, bowel sounds present Neuro: No focal deficits grossly Urinary Catheter Management: Jones: Cath Placed During This Visit: yes Urinary Catheter Date of Insertion: 04/07/23 Data 04/06/23 19:41 04/06/23 19:41 Micro: Microbiology 04/06/23 20:00 Blood Culture - Preliminary Blood SPECIMEN COLLECTED 04/06/23 19:41 Blood Culture - Preliminary Blood SPECIMEN COLLECTED Other data: Launch?Image [employer] [facility] [place] [address] [address] Scan Report Signed Patient: Jamie Tracy Unit #: [id number] : 1940 Age/Sex: 82 / F ADM Date: 04/06/23 Loc: ER Room/Bed: Attending Dr: Ordering Provider/Ordering MD: Hannah Huang MD Date of Service: 04/06/23 Procedure(s): CT abdomen pelvis con [id number] Accession Number(s): [id number] Report Number: [id number] PROCEDURE INFORMATION: Exam: CT Abdomen And Pelvis Without Contrast Exam date and time: 04/06/2023 10:13 PM Age: 82 years old Clinical indication: Abdominal pain; Generalized; Additional info: Abd pain TECHNIQUE: Imaging protocol: Computed tomography of the abdomen and pelvis without contrast. Radiation optimization: All CT scans at this facility use at least one of these dose optimization techniques: automated exposure control; mA and/or kV adjustment per patient size (includes targeted exams where dose is matched to clinical indication); or iterative reconstruction. REPORTING DATA: Count of CT and Cardiac NM exams in prior 12 months: This patient has received 0 known CTs and 0 known cardiac nuclear medicine studies in the 12 months prior to the current study. COMPARISON: CR (CHEST, ) 03/31/2023 5:28 PM RADIATION DOSE METRICS: Total DLP (mGy-cm): 444.47 FINDINGS: Tubes, catheters and devices: Pessary in place. Lungs: 6 mm lingular nodule. 7 mm irregular nodule or scar in the right lower lobe. Diaphragm: Small hiatal hernia. Liver: Numerous low-density nodules scattered throughout the liver, the largest individual nodule measuring at least 5.9 cm. Gallbladder and bile ducts: Multiple calcified stones in the gallbladder and gallbladder neck. No wall thickening. The bile ducts are normal. Pancreas: Atrophic pancreas. Spleen: Normal. No splenomegaly. Adrenal glands: 1.8 cm right adrenal nodule, Hounsfield units less than 10, consistent with a benign adenoma. The left adrenal is normal. Kidneys and ureters: Normal. No hydronephrosis. Stomach and bowel: Suspected partially calcified mass in the cecum. The stomach and small bowel are unremarkable. No obstruction. Appendix: No evidence of appendicitis. Intraperitoneal space: Moderate ascites. No free peritoneal air. Soft tissue nodularity along the greater omentum, measuring up to 3.5 cm in thickness. Vasculature: Arterial calcifications. No aneurysm. Lymph nodes: Multiple enlarged superior right mesenteric lymph nodes, the largest measuring 3.1 cm. Urinary bladder: Jones catheter in a decompressed urinary bladder. Reproductive: The uterus and ovaries are unremarkable. Bones/joints: Scoliosis and degenerative changes of the spine. No fracture or destructive lesion identified. Soft tissues: Body wall edema.? 2.4 cm probable sebaceous cyst in the inferior right breast. CT/CT abdomen pelvis wo con [id number] IMPRESSION: 1. Suspected partially calcified mass in the cecum.? This could represent primary colon malignancy.? Follow-up with colonoscopy is recommended. 2. Severe hepatic metastatic disease.? 3.? Nodularity along the greater omentum is suspicious for intraperitoneal metastasis. 4. Enlarged mesenteric lymph nodes, suspicious for metastasis. 5. Moderate ascites. 6. Cholelithiasis. 7. Pulmonary nodules. Metastatic disease is not excluded.? A&P Assessment and plan (1) Metastatic disease: 82-year-old lady without significant comorbidities presenting with increasing generalized weakness, chronic diarrhea for the past month and weight loss, found to have likelihood of metastatic disease on imaging today. Suspected to be colorectal primary given finding of calcified mass in the cecum. Noted to have severe hepatic metastatic disease, enlarged mesenteric lymph nodes and likely intraperitoneal metastases. We will likely need biopsies to establish diagnosis Patient's daughters to discuss with patient once she is more alert and awake, would like her to get some rest tonight. Pain control with as needed morphine. (2) Anasarca: Increasing over the past 2 weeks. Cause not entirely clear, may be related to hepatic versus renal insufficiency both of which were discovered today. She does not have any known history of CHF, denies any chest pain today. We will check echocardiogram. Chest x-ray taken which per my read shows a small left pleural effusion, awaiting official radiology interpretation. She has received Lasix 20 mg IV in the emergency room Place Jones catheter for accurate urine output Discontinue IV fluids given anasarca, elevated BNP at 3000 (3) Acute renal insufficiency: Likely related to overdiuresis vs dehydration No obvious ureteric obstruction, recently discovered malignancy. Hold all next toxic medications. (4) Lactic acidosis: No overt signs of sepsis at this time. Patient has been afebrile, hemodynamically stable. Suspect that elevated lactate may be related to tumor burden and hepatic metastases. Check CEA levels. Check uric acid, concern for tumor lysis She has received 2 L of IV fluid in the emergency room and was on normal saline at 75 cc an hour which has been discontinued now at 5 AM Leukocytosis present on March 31 has now resolved. Check chest x-ray Check blood cultures UA without signs of UTI, recent urine culture from March 31 is negative to date (5) Acute hyponatremia: Check urine lites Suspect related to hypervolemia vs SIADH. Fluid restriction Hold diuresis for now (6) Transaminitis: Elevated T. bili AST ALT and alkaline phosphatase. No gross biliary obstruction on CT imaging. Plan Dvt ppx: lovenox Full code Attestations Medical Necessity Statement*: Acute kidney injury, need for serial monitoring of renal function, incidentally discovered metastatic disease needing further work-up, anticipate greater than two-point breadsticks Coding Level of Care Code Acute Code for Chg Fwd High MDM includes number and complexity of problems actively addressed during encounter, amount and/or complexity of data reviewed/ordered and described risk of complication, morbidity or mortality of management as documented Diagnoses Metastatic disease C79.9 Anasarca R60.1 Acute renal insufficiency N28.9 Lactic acidosis E87.20 Acute hyponatremia E87.1 Transaminitis R74.01
[2023-04-07] MEDS: cefTRIAXone 1,000 MG in sodium chloride 0.9% (plus) 50 ML 100 MG IV (05:40)
[2023-04-07 05:49] LABS: Uric Acid 15.4 mg/dL (2.4-5.7)
[2023-04-07 05:58] LABS: Thyroid Stimulating Hormone 14.06 uIU/mL (0.27-4.20)
[2023-04-07 06:49] LABS: Lactate Dehydrogenase 5559 U/L (135-214)
--- NOTE | 2023-04-07 09:11 | US_ITS ---
WS: [id number] RIGHT UPPER QUADRANT ULTRASOUND HISTORY: ruq pain COMPARISON: 04/06/2023 CT abdomen Liver: 22.2 cm in length. Enlarged abnormal liver. There are numerous masses throughout the liver. Ma sses are of slightly increased echogenicity and coalescent throughout the liver. Consistent with meta static disease as previously described by CT. Portal Vein: Normal hepatopetal flow with monophasic waveform. Gallbladder: Normally distended with cholelithiasis. No cholecystitis. CBD: 2.0 cm. Marked dilatation of the common bile duct several rounded masses of increased echogenici ty are noted within the common bile duct. Consistent with choledocholithiasis. Pancreas: Atrophied and poorly visualized. Right kidney: 10.2 cm in length. Diffuse mild cortical thinning. Aorta and IVC: Mild atherosclerosis. Poorly visualized. No ascites. IMPRESSION: 1. Markedly enlarged liver. Numerous masses throughout the liver. These are confluent masses and of i ncreased echogenicity. Liver masses have been described on CT also. Consistent with metastatic diseas e. 2. Cholelithiasis. 3. Marked dilatation of the common bile duct. There is a nonshadowing mass within the common bile rox t which is probably choledocholithiasis. I did review the prior CT of the abdomen from 04/06/2023 and there are at least 2 masses within the common bile duct with the largest measuring 11 mm. Findings ar e consistent with choledocholithiasis.
--- NOTE | 2023-04-07 09:13 | CT_ITS ---
WS: [id number] CT CHEST TECHNIQUE: Noncontrast CT of the chest with coronal and sagittal reformatted images. CLINICAL INFORMATION: lymphoma? cecal mass COMPARISON: None. DLP: 323.[address] scans at [facility] use at least one of these dose optimization techniques: automated e xposure control; mA and/or kV adjustment per patient size (includes targeted exams where dose is matc hed to clinical indication); or iterative reconstruction. FINDINGS: Partially visualized diffuse hepatic metastasis as described on the recent CT abdomen pelvi s. Hepatomegaly. Low-attenuation well-circumscribed nodule in the RIGHT inferior breast measuring 2.3 x 1.3 cm. Partially visualized suspected peritoneal carcinomatosis in the upper abdomen. Moderate to advanced thoracic kyphosis with ankylosis. A few small noncalcified pulmonary nodules nonspecific but metastatic disease not excluded. RIGHT upp er lobe nodule measuring 6mm. partially calcified RIGHT upper lobe nodule along the fissure measuring 8 mm. Partially calcified nodule LEFT upper lobe anteriorly measuring 6 mm. Noncalcified nodule in t he lingula measuring 6 mm. Subsegmental atelectasis in the lower lobes. Trace LEFT pleural fluid. Sma ll nodule RIGHT middle lobe measuring 3 mm. Tiny nodule RIGHT upper lobe along the fissure measuring 3 mm. Biapical pleural thickening. Small hazy opacity RIGHT lower lobe. Cardiomegaly. Hyperinflation. Advanced chronic emphysematous changes. Aortic calcification. Calcified granulomas. Osteopenia. IMPRESSION: 1. Diffuse hepatic metastasis partially visualized. 2. Several small pulmonary nodules scattered in both lungs largest measuring 8 mm in the RIGHT upper lobe nonspecific but suspicious for metastatic disease considering abdominal findings. 3. No mediastinal or hilar lymphadenopathy. No axillary lymphadenopathy. 4. Low-attenuation well-circumscribed nodule RIGHT inferior breast measuring 2.2 x 1.3 cm. 5. Partially visualized suspected peritoneal carcinomatosis in the upper abdomen. 6. Thoracic kyphosis with ankylosis.
[2023-04-07 09:47] LABS: Potassium, Radom Urine 40 mmol/L
[2023-04-07 09:48] LABS: Urine Random Chloride 16 mmol/L; Urine Random Sodium 18 mmol/L
--- NOTE | 2023-04-07 09:59 | ECG_ITS ---
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 Measurements Intervals [place] Rate: 78 P: 71 UT: 152 QRS: -1 QRSD: 91 T: 30 QT: 403 QTc: 460 Interpretive Statements SINUS RHYTHM WITH FREQUENT SUPRAVENTRICULAR PREMATURE COMPLEXES IN A BIGEMINAL PATTERN POSSIBLE ANTERIOR MYOCARDIAL INFARCTION , PROBABLY OLD [30 ms Q WAVE IN V3/V4, OR R < 0.2 mV IN V4] Compared to ECG 03/31/2023 17:04:13 Sinus tachycardia no longer present Myocardial infarct finding still present Electronically Signed On 04-07-2023 16:36:31 CDT by Luis Eduardo Ott M.D. [id number]
[2023-04-07 10:00] LABS: Basophils # 0.1 10^3/uL (0.0-0.1); Basophils % 0.4 %; Eosinophils # 0.3 10^3/uL (0.0-0.8); Eosinophils % 1.5 %; Hematocrit 35.8 % (36-47); Lymphocytes # 0.8 10^3/uL (0.8-4.8); Lymphocytes % 4.6 %; Mean Corpuscular HGB Conc 32.7 g/dL (30-55); Mean Corpuscular Hemoglobin 27.8 pg (27-33); Mean Platelet Volume 9.4 fL (7.4-10.4); Monocytes # 0.7 10^3/uL (0.2-0.9); Monocytes % 4.1 %; Neutrophils # 14.79 10^3/uL (1.8-7.7); Neutrophils % 87.8 %; Nucleated Red Blood Cells % 0 %; Platelet Count 545 10^3/cmm (157-399); Red Blood Count 4.21 10^6/uL (3.85-5.65); Red Cell Distribution Width 20.1 % (12.1-15.1); White Blood Count 16.87 10^3/uL (3.29-11.43)
[2023-04-07] MEDS: piperacillin-tazobactam 3.375 GM in sodium chloride 0.9% (plus) 50 ML IV (10:13)
[2023-04-07 10:25] LABS: Gamma Glutamyl Transferase 202 U/L (5-36); Magnesium 1.9 mg/dL (1.7-2.3); Uric Acid 16.9 mg/dL (2.4-5.7)
[2023-04-07 10:26] LABS: Troponin(5th) Baseline 20 ng/L (0-10)
[2023-04-07 10:31] LABS: LAB Peripheral Smear Sent for Review
[2023-04-07 10:35] LABS: Free T4 Free Thyroxine 0.74 ng/dL (0.82-1.77); Procalcitonin 10.58 ng/mL (0-0.5); T3 Free 0.7 PG/ML (2.0-4.4)
[2023-04-07 10:50] LABS: Alanine Aminotransferase 77 U/L (0-33); Albumin Level 2.3 g/dL (3.5-5.2); Alkaline Phosphatase 456 U/L (35-105); Anion Gap 26.6 (5-19); Aspartate Amino Transferase 355 U/L (0-32); Blood Urea Nitrogen 48 mg/dL (8-23); C Reactive Protein 271.1 mg/L (0.0-4.9); Calcium 6.9 mg/dL (8.5-10.5); Carbon Dioxide 14 mmol/L (22-29); Chloride 90 mmol/L (98-107); Globulin 2.6 g/dL (1.3-4.6); Glucose 105 mg/dL (65-115); Lipase 9 U/L (13-60); Osmolality Calculated 273 mOsm/kg (285-295); Potassium 5.6 mmol/L (3.5-5.1); Sodium 125 mmol/L (136-145); Total Bilirubin 1.1 mg/dL (0.15-1.2); Total Protein 4.9 g/dL (6.6-8.7)
[2023-04-07 10:55] LABS: Cortisol Random 63.69 ug/dL (2.47-19.5)
[2023-04-07 11:05] LABS: Phosphorus 8.2 mg/dL (2.5-4.5)
[2023-04-07 11:07] LABS: Creatine Phosphokinase 396 U/L (26-192)
--- NOTE | 2023-04-07 11:11 | ECG_ITS ---
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 Measurements Intervals [place] Rate: 74 P: 0 MN: 0 QRS: 9 QRSD: 86 T: 32 QT: 404 QTc: 451 Interpretive Statements ATRIAL FIBRILLATION POSSIBLE ANTERIOR MYOCARDIAL INFARCTION , PROBABLY OLD [30 ms Q WAVE IN V3/V4, OR R < 0.2 mV IN V4] ABNORMAL RHYTHM ECG Compared to ECG 04/07/2023 09:59:14 Sinus rhythm no longer present Myocardial infarct finding still present Electronically Signed On 04-07-2023 16:44:52 CDT by Luis Eduardo Ott M.D. [id number]
[2023-04-07 11:37] LABS: Carcinoembryonic Antigen 451.5 ng/mL (0.0-4.7)
[2023-04-07 12:48] LABS: Ammonia 30 umol/L (11-51); Lactic Sepsis W/Reflex 2.8 mmol/L (0.5-2.2)
[2023-04-07 12:50] LABS: Troponin 5 2HR 18.77 ng/L (0-10); Troponin 5 2HR Delta -1.23 ABS# (0-10)
[2023-04-07] MEDS: insulin regular-human 10 UNIT in SYRINGE 1 EACH IVP ×2 (12:59→16:29)
[2023-04-07] MEDS: dextrose 50% syringe 50 mL IVP ×2 (13:00→16:29)
[2023-04-07 13:01] LABS: ABG PCO2 32.8 mmHg (35-45); ABG PH Result 7.33 (7.35-7.45); Arterial Blood Gas Hematocrit 34.8 % (37-47); Base Excess ABG -7.9 mmol/L (-2.0-2.0); Blood Gas Allen Test Pos; Blood Gas Sample Site Radial, left; Blood Gas Sample Type Arterial; HCO3 ABG 17.2 mmol/L (22-26); Oxygen Device ROOM AIR; PO2 ABG 79.4 mmHg (80.0-100.0)
[2023-04-07] MEDS: sodium chloride 0.9% 1,000 ML 50 ML IV (13:21)
[2023-04-07 13:50] LABS: Reflex Lactate Order REFLEX LACTIC ORDERD
--- NOTE | 2023-04-07 15:09 | ECG_ITS ---
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 Measurements Intervals [place] Rate: 71 P: -23 RI: 151 QRS: 12 QRSD: 87 T: 45 QT: 423 QTc: 461 Interpretive Statements ATRIAL FIBRILLATION Compared to ECG 04/07/2023 11:25:06 Myocardial infarct finding no longer present Electronically Signed On 04-07-2023 16:43:29 CDT by Luis Eduardo Ott M.D. [id number]
[2023-04-07 15:33] LABS: Troponin 5 6HR 20.04 ng/L (0-10)
[2023-04-07 15:34] LABS: Alanine Aminotransferase 91 U/L (0-33); Albumin Level 1.9 g/dL (3.5-5.2); Alkaline Phosphatase 436 U/L (35-105); Aspartate Amino Transferase 464 U/L (0-32); Blood Urea Nitrogen 49 mg/dL (8-23); Calcium 6.8 mg/dL (8.5-10.5); Carbon Dioxide 16 mmol/L (22-29); Chloride 91 mmol/L (98-107); Globulin 3.6 g/dL (1.3-4.6); Glucose 114 mg/dL (65-115); Osmolality Calculated 278 mOsm/kg (285-295); Sodium 127 mmol/L (136-145); Total Protein 5.5 g/dL (6.6-8.7); Uric Acid 16.8 mg/dL (2.4-5.7)
[2023-04-07 15:39] LABS: Troponin 5 6HR Delta 0.04 ng/L (0-12)
[2023-04-07 15:40] LABS: Creatinine Clr Calc Pharmacy 14.0064
[2023-04-07 15:48] LABS: Lactic Acid level (Lactate) 4.2 mmol/L (0.5-2.2); Phosphorus 7.6 mg/dL (2.5-4.5)
--- NOTE | 2023-04-07 15:53 | PC.NURSE ---
Received patient from CSU staff at 1436. Patient is alert and oriented to person, place, time, and situation. HR: 88, BP: 109/58. SPO2: 95%, Temp: 97.6.
--- NOTE | 2023-04-07 15:55 | PC.NURSE ---
Extremities are cool to the touch, cap refill is 4-5 seconds. Blood pressure has been slowly trending downwards. Nurse alerted Dr miner, receive dorders to reduce amiodarone form 1 to .5 and to give 500mL bolus.
[2023-04-07] MEDS: sodium chloride 0.9% 1,000 ML 999 ML IV (16:07)
[2023-04-07] MEDS: sodium bicarbonate 8.4% 1 mEq/mL 50mL Syr 50 MEQ IVP (16:35)
[2023-04-07] MEDS: calcium gluconate 0.9% NaCL 1 GM/50 ML PREMIX IV (16:37)
[2023-04-07] MEDS: sodium polystyrene sulfonate 15 gm/60 mL Btl PO (16:37)
--- NOTE | 2023-04-07 16:57 | P.CONIM_ITS ---
Providers/Reason For Consult Consulting Physician/Specialty*: Medical oncology Reason for Consult*: Metastatic colon cancer Requesting Physician: Ray Ramos MD Attending Physician: Ray Ramos MD Primary Care Provider: Roberto Laura MD History of Present Illness History of Present Illness This is an 82-year-old woman with CT evidence of advanced, metastatic colon cancer. This patient has been excellent general health, with no prior ongoing medical illnesses. She was seen in the emergency room 1 week ago with complaints of fatigue and swelling in her legs. She had significant leukocytosis with a white blood cell count of 20,300. She had mild hyponatremia, but with normal renal function. Her alkaline phosphatase was significantly elevated at 345/105 U/L, and her albumin was low 2.7 g/dL. She was given outpatient antibiotic therapy for acute cystitis. On 04/06/2023 she was admitted to the hospital after returning to the emergency room with complaints of abdominal distention and decreased urine output. She also reported having diarrhea. Her creatinine had increased to 2.6 mg/dL and her sodium had decreased to 122 mmol/L. Bilirubin was mildly elevated at 1.4 mg/dL with further elevation of the alkaline phosphatase to 558 U/L. The SGOT and SGPT also were elevated. Her lactic acid was significantly elevated at 6.0 mmol/L. LDH was markedly elevated at 5559 U/L. Noncontrast CT of the abdomen/pelvis showed numerous low-density nodules scattered throughout the liver consistent with metastatic disease. The largest nodule measured 5.9 cm. Also noted were enlarged mesenteric lymph nodes, suspicious for metastases, and nodularity along the greater omentum which was suspicious for intraperitoneal metastasis. A partially calcified mass in the cecum appeared consistent with primary colon malignancy. Subcentimeter pulm nodules were noted in the lingula and right lower lobe. There were multiple calcified stones noted in the gallbladder and gallbladder neck, but with no associated wall thickening. The bile ducts appeared normal. With those findings, she was admitted to the hospital. Her further evaluation included venous Doppler studies which showed no evidence of deep vein t hrombosis. Gallbladder ultrasound reported marked dilatation of the common bile duct with several rounded masses of increased echogenicity within the common bile duct, consistent with choledocholithiasis. The liver was noted to be markedly enlarged with numerous masses, consistent with metastatic disease. Chest CT showed scattered small pulmonary nodules in both lungs suspicious for metastatic disease. A low-attenuation well-circumscribed nodule in the right inferior breast measuring 2.2 x 1.3 cm. She currently is receiving IV fluids and other supportive care measures, but thus far with no urine output. She says she is feeling okay, but family indicates that she has been very fatigued for the past month. She does admit that her appetite has been down. She has not had fever, but she has had some sweating. She has a little bit of cough. She has not had shortness of breath or chest pain. She has been having diarrhea at home, and she also had a couple of recent episodes of red blood in the stool. She currently does not complain of abdominal pain. She has not had any significant joint or bone pain. She does not complain of headache or dizziness, and she has no focal neurologic symptoms. Review of Systems Narrative: Constitutional: She has felt fatigued for the past month or so. Appetite has not been good. She apparently has lost weight. No fever. She has had some sweating. ECOG score is 2. Eyes:?No change in vision. ENMT: She has some hearing loss. No sinus congestion/drainage. No mouth sores. No sore throat or difficulty swallowing. Hematologic/Lymphatic: No abnormal bruising or bleeding. Respiratory: No shortness of breath. She has had a little bit of cough. No pleuritic pain or hemoptysis. Cardiovascular: No angina pain. No palpitations. Gastrointestinal: She has nausea recently when she felt hot. No heartburn or acid reflux. She has had some diarrhea and she has said that her stomach hurts at times. Recently she had noticed red blood in the stool on several occasions. Genitourinary: Bladder function had been okay at home, but over the past several days she has stopped urine output. Musculoskeletal: No joint or bone pain. Integumentary: No skin rash or other skin changes. Neurologic: No headache or dizziness. No numbness or tingling. No other focal neurologic symptoms. Psych:?No anxiety and depression. No insomnia. Medications/Allergies Home Medications Medication Instructions Recorded Confirmed Last Taken Type ciprofloxacin HCl 500 mg tablet 500 mg PO Q12H #20 tabs 03/31/23 04/07/23 Unknown Rx metoprolol tartrate 25 mg tablet 12.5 mg PO BID 04/07/23 04/07/23 Unknown History Allergies Allergy/AdvReac Type Severity Reaction Status Date / Time No Known Allergies Allergy Verified 03/31/23 16:55 Current Medications Generic Name Dose Route Start Last Admin Trade Name Ruy PRN Reason Stop Dose Admin Sodium Chloride 1,000 mls @ 100 mls/hr 04/07/23 11:30 04/07/23 15:58 Sodium Chloride 0.9% IV 100 mls/hr .Q10H LAUREEN Infusion Sodium Chloride 1,000 mls @ 999 mls/hr 04/07/23 16:00 04/07/23 16:07 Sodium Chloride 0.9% IV 04/07/23 17:00 999 mls/hr .Q1H1M LAUREEN Administration Vitals/I&O/Wt Last Vital Signs Temp 98.1 F 04/07/23 11:50 Pulse 75 04/07/23 16:07 Resp 18 04/07/23 11:50 BP 148/89 04/07/23 11:50 Pulse Ox 94 04/07/23 16:07 O2 Del Method Room Air 04/07/23 16:07 04/07/23 04/07/23 04/07/23 06:59 14:59 22:59 Intake Total 2099 / 2099 50.1 / 50.1 223.488 / 273.588 Output Total Balance 2069 / 2069 25.1 / 25.1 223.488 / 248.588 Weight last 48 hrs Weight 68.039 kg Physical Exam Narrative: Constitutional: She appears somewhat frail generally, but not acutely ill. Eyes: Sclerae nonicteric. Conjunctivae clear. ENMT: No lesions noted in the oral cavity. Hematologic/Lymphatic: No cervical, clavicular, or axillary adenopathy. Respiratory: Lungs sound clear. She has good air movement bilaterally. Cardiovascular: Heart rhythm is regular. There is no murmur, gallop, or rub noted. Abdomen: Soft. Liver is enlarged and tender. Spleen is not palpable. There is no abdominal mass noted and there is no obvious ascites. There is no inguinal adenopathy. Extremities: No edema. Both feet are cool to touch. Not able to palpate pedal pulses. She is starting to have some mottling in her distal feet/toes. Integumentary: No suspicious skin lesions noted. Neurologic: No focal neurologic deficits noted. Urinary Catheter Management: Jones: Cath Placed During This Visit: yes Reason for Continuing Indwelling Catheter: Accurate Measurement of Urinary Output in Critically Ill Patients Urinary Catheter Date of Insertion: 04/07/23 Data 04/07/23 09:45 04/07/23 15:05 Micro: Microbiology 04/06/23 20:00 Blood Culture - Preliminary Blood SPECIMEN COLLECTED 04/06/23 19:41 Blood Culture - Preliminary Blood SPECIMEN COLLECTED A&P Assessment and plan (1) Metastases to the liver: This patient who had previously been in excellent health is admitted to the hospital with CT evidence of advanced malignancy, most likely a primary colon cancer in the cecum with metastatic involvement to the liver, mesenteric lymph nodes, and peritoneum. Her laboratory studies are indicative of end-stage disease, and she now has associated renal shutdown. The CT and laboratory findings were reviewed with the patient and her family, and we discussed the clinical implications. They have been considering the possibility of proceeding with dialysis. The clinical picture is somewhat complicated, as she may have choledocholithiasis and/or sepsis contributing to the acute illness. However, in the setting of advanced malignancy, it is extremely unlikely that her condition will improve with dialysis and, assuming that she does have metastatic colon cancer, is extremely unlikely that she would be eligible for any treatment. As such, my recommendation is to transition her management to comfort care. With her having no urine output her prognosis unfortunately is extremely poor, but at this point there is no meaningful chance of her recovering. Coding Level of Care Code Acute Code for Chg Fwd Diagnoses Metastases to the liver C78.7 Time Spent (min) 60 Comment >60 minutes in [id number] time with patient, review of record, and documentation
--- NOTE | 2023-04-07 18:24 | PM.PN ---
Subjective Subjective: - Patient was examined multiple times throughout the morning, throughout the afternoon, and into the evening time with multiple family meetings, meeting with Dr. Robin, final meeting with family members in the ICU waiting room, and family meeting with patient and with family members at bedside -Early on the morning, I reviewed the chart, ordered a CT of the chest, cardiac echo, venous ultrasound, abdominal ultrasound of the gallbladder -Given the findings, I was worried about metastatic colorectal cancer, with extensive metastasis to liver, to lymph nodes, to peritoneum, with CT evidence of metastasis to the lungs, she also has a nodule of the right breast possibly primary versus metastatic lesion -In addition she has evidence of acute renal failure, concerns for acute tubular necrosis, complete renal shutdown and she has had minimal urine output with Jones catheter in place -In addition she is developing hyperkalemia, hyperuricemia, hypophosphatemia, hypocalcemia, concern for possible tumor lysis syndrome with high cancer burden -Concerns for liver failure, with elevated LFTs, -Lactic acidosis, potentially secondary to high tumor burden, but with concerns for underlying sepsis from UTI, or possible choledocholithiasis, acute descending colon pending gallbladder ultrasound, antibiotic coverage but on the Zosyn -Given her elevated LFTs elevated alk phos, elevated lactic acid, I was concerned for possible acute cholecystitis, possible choledocholithiasis, possible acute ascending cholangitis, thus I ordered a gallbladder ultrasound this was pending -I discussed the case in detail with Dr. Robin, her CEA is over 400, her BMI is 27, she has not seen a physician in many years, to our knowledge she does not have any medical problems -Given radiographic evidence, overall liver failure, kidney failure, her prognosis is overall poor, radiographic evidence shows radiographic evidence of metastatic cancer likely primary colon cancer now with acute renal failure, liver failure, again overall prognosis is poor, I discussed with Dr. Robin consulting on the patient, he was agreeable to see the patient, however I kept him updated throughout the afternoon as the test results came -Patient was seen early this morning, armed with all this information, I had a detailed discussion with patient -Her family members or all at bedside -She is alert oriented x3, following all commands -She has bilateral 2+ pitting edema, abdomen distended, she denies any chest pain, does report weakness, fatigue, poor appetite, weight loss -She tells me that she has not seen a physician in many years, she does not have any medical problems however she has never had a colonoscopy, she has never had a mammogram, her sister does have a history of breast cancer -To her knowledge she is never had a heart attack, has never had a stroke, she is never smoked, she has not had any significant medical hospitalizations, no significant surgeries, no history of kidney problems, no history of liver problems, no history of smoking no history of alcoholism -She tells me that over the last few weeks she has felt fatigue, malaise, poor appetite, has developed abdominal swelling, anasarca and instability, she was diagnosed with a UTI on March 31, she was put on antibiotics -I had a detailed discussion with patient's family members and patient at bedside, I advised him that I do not have good news, she has radiographic evidence of likely primary colon cancer with metastasis, to the liver, to her lymph nodes, to the peritoneum, with evidence of possible pulmonary metastasis she also has a nodular opacity in the right breast, which could be primary breast cancer or metastatic lesion, given the radiographic findings, 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 -I advised him that cancer is a tissue diagnosis, the only way to know that this is cancer or what type of cancer is to do a biopsy, the best way to get tissue in her case would be to consider possible liver biopsy versus colonoscopy -However given her acute renal failure, her ongoing concerns for infection, and liver failure, currently I do not think she would be a good candidate for biopsy but we could readdress this in the near future depending on clinical progress -I advised her that currently I am quite concerned about an acute renal failure, her kidneys have shut down, her creatinine has jumped up to 2.9, she is developing significant electrolyte abnormalities such as hyperkalemia, hyperphosphatemia, hyperuricemia, hypocalcemia, with hyponatremia, this could possibly be due to tumor lysis syndrome or it could be from her high tumor burden or it could be acute renal failure -I am also concerned about her acute liver failure -I am also concerned acutely about her elevated lactic acid, this could be sepsis, from UTI, possible sepsis from gallbladder pathology, she is on Zosyn, will have to watch this closely -She also has NSTEMI, elevated troponins, likely from cardiac etiology, likely secondary to her renal failure, liver failure her malignancy but she could have underlying cardiac pathology -Given her elevated CEA of 451, her LDH over 5000, her elevated CK, I am worried about a high tumor burden -This was significant information was giving to patient, so I gave her and her family an hour or so to digest as I start to get some of the test results back -I answered all patient's questions, -We also had briefly discussed options about her cancer, chemotherapy versus hospice -We also briefly discussed options about her renal failure, medical management versus hospice versus dialysis -We also briefly discussed her lactic acidosis or sepsis, -Again I was allowing patient and her family to digest this information -I advised family that currently her status is critical, prognosis is poor, I Caity have Dr. Robin weigh in, that user experience lead weigh in, we will see how she does over the next few hours -I was paged by nursing staff later on in the morning, that patient was developing A-fib with RVR, -Patient was started on an amiodarone drip, -Her blood pressures were also soft, her fluids were increased to 100 cc, maps around 65 -Gallbladder ultrasound revealed that the CBD is 2 cm, she has 2 significant CBD masses, measuring 11 mm, likely choledocholithiasis, with her elevated lactic acid, elevated bili, elevated GGT, I am highly concerned that this might be choledocholithiasis resulting in sepsis and or developing acute ascending cholangitis - I had a detailed discussion with the patient and her family about acute ascending cholangitis, choledocholithiasis, with elevated CRP, her elevated inflammatory markers, elevated bili, elevated LFTs, alk phos, this could be from the cancer high tumor burden, but with her elevated lactic acid I am highly concerned that this is sepsis from choledocholithiasis possible acute ascending cholangitis, I am going to follow her bili function closely, she does not complain of abdominal pain, no right upper quadrant pain, is not visibly jaundiced, I did discuss with family members that if her bilirubin continues to go up, her LFTs continue to go up, she continues to have sepsis then I would recommend transferring her to a tertiary level center for ERCP, as this is a life-threatening condition, however patient and family were not too keen about transfer and at this point, they had received a barrage of information about her cancer kidney failure and they were still making up their mind about how to proceed going forwards, so I left this information digestion continue to monitor her in the cardiac stepdown unit with antibiotics -I had a detailed discussion with nephrology about the case, given her electrolyte abnormalities, they recommended to repeat blood work at about 2 PM, and to have a serious discussion about patient's family about proceeding with dialysis as we can get ahead of this, versus acutely proceeding, the other option is doing IV fluids, watching her kidney function closely however she has a high risk of morbidity and mortality if she deteriorates with her electrolyte abnormalities with a renal failure, other options or hospice, -I relayed this information to patient and patient's family, currently they are not ready to make a decision yet, they want to watch her kidney function, -I was paged earlier on in the afternoon, that she could do to have episodes of A-fib, blood pressures were soft urine output was minimal, I discussed with patient about moving her to ICU, I confirmed with patient that for now her goals of care are full code, that she is agreeable to move to the ICU, that she might require pressors, she might require intubation, she is agreeable to proceed she has not made her mind up about dialysis -Patient had resistant hyperkalemia, given insulin, D50, -Patient was moved to ICU, reexamined -I again had a detailed discussion with patient's family at roughly 2 PM or so, her creatinine is remains 2.9, she continues to have persistent hyperkalemia we will give another unit of D50, insulin, sodium bicarb, Kayexalate, her urine output is lackluster, my concern is she has ATN with persistent electrolyte abnormalities, with hyperkalemia, hyperphosphatemia, erythema, hypocalcemia, elevated troponins, she has renal failure, [place]. If we do not get ahead of this, throughout the night she will deteriorate as she is developing fluid overload with the fluid that we are giving to her to help her kidneys, she is third spacing, so she has a high risk of edema telemetry high risk of respiratory failure high risk of cardiac arrhythmias she is already gone into A-fib requiring amiodarone drip, patient and family are not ready to make a decision they are thinking this would wait until they see Dr. Robin -I had a candid discussion with patient's family in the ICU about her gallbladder ultrasound, will have to watch her closely for bilirubin closely, for now stabilized, but ideally we should transfer her to tertiary level center for ERCP however they are not ready to make a decision they want to see with Dr. Robin's as about her cancer status -In the ICU her blood pressures are becoming soft, maps around 60, but given a bolus of IV fluids, order placed for PICC line, will consider pressors, continue amiodarone, -Dr. Robin was seen in the ICU, I reviewed the CAT scans with Dr. Robin, family meeting with Dr. Robin the patient's family -After discussing patient's cancer with patient's family, patient and their family after discussion with Dr. Robin has decided to not pursue any treatment for the cancer, or pursue comfort care hospice -I had a detailed discussion with the patient with nursing staff present with patient's family present about her goals of care -Patient voices that she does not want to have any further treatment, she wants to be comfortable she wants us to ease her pain and ease her suffering, she wants to go on hospice -I asked her about dialysis she does not want to have dialysis -I asked her about possible transfer ERCP she does not want to have this -I asked her about continued medical interventions, she wants us to stop all medical mentions allow her to be comfortable -I had a detailed discussion with her reiterating options available, including continue medical interventions, pursuing dialysis, pursuing treatment for her cancer, watching her while she is in the hospital versus comfort care -After discussing the risk and benefits of all options, she voiced understanding, all questions answered, agreed to proceed with comfort care -I advised her that with her resistant hyperkalemia, I am worried about a cardiac arrhythmia as etiology behind her ultimate demise, I have given her D50, insulin, sodium bicarb am hoping that will bring down the potassium, but with her not getting dialysis, I am worried that her hyperkalemia is can worsen, with her deteriorating renal function, but at this point we will just ease her pain and ease her suffering she voices understanding in terms of her choledocholithiasis, and can stop her antibiotics, she would likely demise to sepsis, septic shock, but at that point were easing her pain easing her suffering -I also had an extensive family meeting with all patient's family members in the family waiting room, I like above had a detailed discussion about above findings, -Discussed patient's radiographic evidence of metastatic colon cancer, with now acute renal failure, acute liver failure, choledocholithiasis, with her A-fib, her arrhythmias, her deteriorating status, her significant electrolyte abnormalities, and discussed her and and her family's discussion with Dr. Robin about her goals of care and patient has decided to proceed with comfort care I answered all their questions about her malignancy that again cancer is a tissue diagnosis however I think that she would likely succumb before we could have her pursue tissue diagnosis, but radiographically, based upon her CTs, based upon the blood work based upon Dr. Robin's consultation this radiographically looks how a cancer would look like, and now she is suffering complications from it such as the acute liver failure, acute renal failure, now she also has choledocholithiasis, sepsis from possible choledocholithiasis and acute ascending cholangitis for which she is too unstable right now to be transferred as currently her blood pressures are quite soft, she remains in A-fib and she is critically ill, but at this point she does not want to pursue any interventions, does not want to continue medical interventions continue treatment, at this point we would ease her pain and ease her suffering allow her to pass away comfortably I answered all family's questions, they voiced understanding, all questions answered -I again saw patient, confirmed that she wants to proceed with comfort care, discussed risk and benefits of comfort care, she voiced understanding, all consents are, agreed to proceed we will move her upstairs so her and her family can have privacy -I again went over her CODE STATUS, patient confirmed with me that she is a DO NOT RESUSCITATE, DO NOT INTUBATE, if she starts to suffer she just wants to for us to ease her pain and ease her suffering, the goal is not to hasten her but to ease her suffering she voiced understanding, all questions answered, Vitals/I&O/Wt Last Vital Signs Temp 98.1 F 04/07/23 11:50 Pulse 86 04/07/23 17:55 Resp 19 H 04/07/23 17:55 BP 99/47 04/07/23 17:35 Pulse Ox 99 04/07/23 17:55 O2 Del Method Room Air 04/07/23 16:07 04/07/23 04/07/23 04/07/23 06:59 14:59 22:59 Intake Total 2099 50.1 / 50.1 223.488 / 273.588 Output Total Balance 2069 25.1 / 25.1 223.488 / 248.588 Weight last 48 hrs Weight 68.039 kg Physical Exam Const: COMMON NORMALS: no acute distress and patient oriented x3 GENERAL APPEARANCE: ill appearing and frail appearing NUTRITIONAL APPEARANCE: cachectic Eye: COMMON NORMALS: Equal, round and reactive pupils present PUPIL: Yes Equal, round and reactive pupils present Resp: COMMON NORMALS: normal respiratory effort, No retractions and No use of accessory muscles AUSCULTATION: crackles Cardio: COMMON NORMALS: regular rate, regular rhythm, S1 normal heart sound present and S2 normal heart sound present RATE: regular rate RHYTHM: regular rhythm HEART SOUNDS: S1 normal heart sound present and S2 normal heart sound present GI: OTHER: Abdomen soft, distended, good bowel sounds, has 2+ lower extremity edema, his anasarca Extremity: COMMON NORMALS: capillary refill normal and no pedal edema Neuro: COMMON NORMALS: patient oriented x3, CN's II-XII intact bilaterally and moves all extremities Psych: COMMON NORMALS: mental status grossly normal Urinary Catheter Management: Jones: Cath Placed During This Visit: yes Reason for Continuing Indwelling Catheter: Accurate Measurement of Urinary Output in Critically Ill Patients Urinary Catheter Date of Insertion: 04/07/23 Sepsis: Is patient septic: Yes Focused sepsis exam performed: Yes Focused sepsis exam: DP PT pulses diminished bilaterally, capillary refill greater than 4 seconds, mild mottling of bilateral lower extremities, and also fingers Data 04/07/23 09:45 04/07/23 15:05 Micro: Microbiology 04/06/23 20:00 Blood Culture - Preliminary Blood SPECIMEN COLLECTED 04/06/23 19:41 Blood Culture - Preliminary Blood SPECIMEN COLLECTED A&P Assessment and plan (1) Metastases to the liver: (2) Lactic acidosis: (3) Anasarca: (4) Urinary tract infection: Qualifiers: Hematuria presence: with hematuria Urinary tract infection type: acute cystitis Qualified Code(s): N30.01 - Acute cystitis with hematuria (5) Edema: (6) Acute hyponatremia: (7) Leukocytosis: (8) Colonic mass: (9) Metastatic disease: (10) Acute renal insufficiency: (11) Acute renal failure: (12) Septic shock: (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: (14) Hyperuricemia: (15) Hypocalcemia: (16) Acute hyperkalemia: (17) Hyperphosphatemia: (18) Admission for hospice care: (19) Atrial fibrillation: (20) Transaminitis: (21) Choledocholithiasis: (22) Ascending cholangitis: (23) Liver failure: (24) Multiorgan failure: (25) Breast mass, right: (26) Hyponatremia: Attestations Medical Necessity Statement*: Patient requires hospitalization for metastatic colon cancer, to liver, to lung, to peritoneum, with acute renal failure, ATN, hyperkalemia, hyperphosphatemia, hyperuricemia, hyponatremia, liver failure, lactic acidosis, sepsis, septic shock, choledocholithiasis, UTI, NSTEMI, ATN, multiorgan failure Coding Level of Care Code Critical Care >/= 30 minutes Critical care time (in minutes): 120 The high probability of a clinically significant, sudden or life threatening deterioration, as referenced in this documentation, required my full and direct attention, intervention and personal management. The critical care time shown is in addition to time spent performing any reported separately billable procedures and includes the following: [x] Data and vital sign review and interpretation [x] Patient assessment, examination and intervention [x] Medication orders and management [x] Patient/Family updates as able [x] Care Coordination and Documentation. Diagnoses Metastases to the liver C78.7 Lactic acidosis E87.20 Anasarca R60.1 Urinary tract infection N30.01 Hematuria presence: with hematuria Urinary tract infection type: acute cystitis Edema R60.9 Acute hyponatremia E87.1 Leukocytosis D72.829 Colonic mass K63.89 Metastatic disease C79.9 Acute renal insufficiency N28.9 Acute renal failure N17.9 Septic shock A41.9; R65.21 Tumor lysis syndrome E88.3 Hyperuricemia E79.0 Hypocalcemia E83.51 Acute hyperkalemia E87.5 Hyperphosphatemia E83.39 Admission for hospice care Z51.5 Atrial fibrillation I48.91 Transaminitis R74.01 Choledocholithiasis K80.50 Ascending cholangitis K83.09 Liver failure K72.90 Multiorgan failure Breast mass, right N63.10 Hyponatremia E87.1
--- NOTE | 2023-04-07 18:38 | PC.NURSE ---
[facility]ift SUmmary: Patient transferred From [facility] to ICU due to anticipated decline (electrolyte abnormalities, suspected septic shock, llikely need for dialysis), but shortly after transfer the patient made the decision to be placed on comfort care. Currently family is at [facility]. awaiting [facility] for [facility] room.
--- NOTE | 2023-04-07 19:33 | PC.NURSE ---
Report called to [facility] for patient transfer to unit due to transition to comfort care.
[2023-04-08] VITALS (24 sets, daily range): BP systolic 95–100; BP diastolic 47–64; PULSE 64–88; RESP 5–20; TEMP 35.9–36.4; O2SAT 91–94
[2023-04-08] MEDS: morphine 10 mg/0.5 mL oral liq UD SUBLINGUAL ×2 (03:11→04:09)
[2023-04-08] MEDS: morphine 4 mg/mL SDV 1 mL 1 MG IVP ×2 (04:47→08:20)
[2023-04-08] MEDS: morphine 4 mg/mL SDV 1 mL IVP ×26 (09:32→23:30)
--- NOTE | 2023-04-08 10:49 | PC.CHAP ---
Pastoral Care Encounter/Spiritual Assessment Type of Contact [] Declined internet sales associate visit [] Patient/Family/Request visit [] Outpatient visit [] Follow-up visit [] Physician referral [] Code/Alert [x] Routine visit [] Staff referral [] Actively dying [] Patient sleeping [x] Family support [] [] Out of room [] Palliative care [] [x] Receiving care in room [] Pre-surgical visit [] Trauma [] Long length of stay [] ICU visit [] Other: Relational/Emotional Strength [] Patient feels connected with others/family/visitors/staff [] Distress [] Loneliness/isolation [] Abandonment Spirituality of Patient [] Person of Yumiko [] Attends Tenriism of their Yumiko [] Believes in Prayer [] Reads Bible or Bahai materials [] There are Spiritual issues to be addressed Utility Repairer Interventions [x] Prayer [] Active listening [] Non-anxious presence [] Spiritual/emotional support [] Crisis/trauma care [] Spiritual counseling [] Bereavement support [] Provided bereavement packet [] Provided Bible/devotional materials [] Provided toy/stuffed animal, coloring book to patient or family member [] Provided Communion [] Anointing/[place] [] Salvation [] Completed spiritual assessment [] Other: Impact on Illness or Injury [] Angry [] Fearful [] Anxious [] Often cries [] Exhaustion [] Unable to work [] Unable to attend mandaeism [] Unable to walk/stand [] Unable to read [] Unable to drive [] Unable to eat/drink [] Unable to sleep [] Unable to be with family [] Patient intubated [] Other: Summary lots of family with patient Time spent with patient 10 min
--- NOTE | 2023-04-08 16:04 | P.PN_ITS ---
Subjective Subjective: Patient was seen this morning, family members at bedside, she is alert to person, not to place, not to time, having intermittent apnea spells, tachycardic, intercostal retractions, nasal flaring, family members are at bedside, family members are saying their goodbyes, family members at bedside te ll me that throughout the night, her condition has rapidly deteriorated, she is nonresponsive at times, she stops breathing at times, I discussed her plan with nursing staff and patient's family that our plan is to watch her here as inpatient comfort care for the next 48 hours because I believe is imminent, and moving her currently home on hospice could be an option if she is here for more than 48 hours, but I believe currently is imminent, and trying to get her home would carry the risk of her passing away in transit, given her apnea spells, her nonresponsive state, all questions answered, agreed to proceed, discussed with nursing staff, as she family tells me that she seems to be suffering, moaning out, will titrate her morphine, to ensure that she does not suffer but the goal is not to hasten her , but to ensure that she is not in pain or suffering, patient family and nursing staff voiced under understanding, all questions answered Vitals/I&O/Wt Last Vital Signs Temp 96.6 F L 04/08/23 08:00 Pulse 88 04/08/23 08:00 Resp 5 L 04/08/23 15:30 BP 95/49 04/08/23 08:00 Pulse Ox 91 04/08/23 08:00 O2 Del Method Room Air 04/08/23 08:00 04/08/23 04/08/23 04/08/23 06:59 14:59 22:59 Intake Total 919.267 / 2245.241 Output Total 50 / 125 Balance 869.267 / 2120.241 Weight last 48 hrs Weight 68.039 kg Physical Exam Const: EXAM LIMITATIONS: altered mental status GENERAL APPEARANCE: in distress, lethargic, ill appearing and frail appearing ORIENTATION/CONSCIOUSNESS: Yes patient obtunded and Yes lethargic Resp: EFFORT & INSPECTION: Yes abnormal respiratory pattern, Yes decreased respiratory effort, Yes labored and Yes retractions AUSCULTATION: crackles and rales Cardio: COMMON NORMALS: S1 normal heart sound present and S2 normal heart sound present HEART SOUNDS: S1 normal heart sound present and S2 normal heart sound present GI: COMMON NORMALS: Soft to palpation and non-tender INSPECTION: Yes abdominal distension AUSCULTATION: Yes Hypoactive bowel sounds present PALPATION: Yes Soft to palpation Neuro: SENSORIUM/ORIENTATION: Yes lethargic Urinary Catheter Management: Jones: Cath Placed During This Visit: yes Reason for Continuing Indwelling Catheter: Hospice/Comfort/Palliative Care Urinary Catheter Date of Insertion: 04/07/23 Data 04/07/23 09:45 04/07/23 15:05 Micro: Microbiology 04/06/23 20:00 Blood Culture - Preliminary Blood NEGATIVE TO DATE 04/06/23 19:41 Blood Culture - Preliminary Blood NEGATIVE TO DATE A&P Assessment and plan (1) Metastases to the liver: (2) Lactic acidosis: (3) Anasarca: (4) Urinary tract infection: Qualifiers: Hematuria presence: with hematuria Urinary tract infection type: acute cystitis Qualified Code(s): N30.01 - Acute cystitis with hematuria (5) Edema: (6) Acute hyponatremia: (7) Leukocytosis: (8) Colonic mass: (9) Metastatic disease: (10) Acute renal insufficiency: (11) Acute renal failure: (12) Septic shock: (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: (14) Hyperuricemia: (15) Hypocalcemia: (16) Acute hyperkalemia: (17) Hyperphosphatemia: (18) Admission for hospice care: (19) Atrial fibrillation: (20) Transaminitis: (21) Choledocholithiasis: (22) Ascending cholangitis: (23) Liver failure: (24) Multiorgan failure: (25) Breast mass, right: (26) Hyponatremia: Plan Patient requires inpatient admission for comfort care/hospice, as is imminent, continue comfort care order set, titrate medications as needed to ease her pain and ease her suffering, keep family informed, will keep supporting family and patient Attestations Medical Necessity Statement*: Patient requires hospitalization for inpatient comfort care Diagnoses Metastases to the liver C78.7 Lactic acidosis E87.20 Anasarca R60.1 Urinary tract infection N30.01 Hematuria presence: with hematuria Urinary tract infection type: acute cystitis Edema R60.9 Acute hyponatremia E87.1 Leukocytosis D72.829 Colonic mass K63.89 Metastatic disease C79.9 Acute renal insufficiency N28.9 Acute renal failure N17.9 Septic shock A41.9; R65.21 Tumor lysis syndrome E88.3 Hyperuricemia E79.0 Hypocalcemia E83.51 Acute hyperkalemia E87.5 Hyperphosphatemia E83.39 Admission for hospice care Z51.5 Atrial fibrillation I48.91 Transaminitis R74.01 Choledocholithiasis K80.50 Ascending cholangitis K83.09 Liver failure K72.90 Multiorgan failure Breast mass, right N63.10 Hyponatremia E87.1
[2023-04-08] MEDS: atropine 1% op soln 2 mL Btl 3 DROP SUBLINGUAL (19:28)
[2023-04-09] MEDS: morphine 4 mg/mL SDV 1 mL IVP ×4 (00:27→05:13)
[2023-04-09] MEDS: LORazepam 2 mg/mL INJ 1 mL IVP ×2 (00:27→03:03)
--- NOTE | 2023-04-09 05:15 | PC.NURSE ---
Family does not want patient repositioned.
--- NOTE | 2023-04-09 05:51 | PC.NURSE ---
[facility] has been notified and patient is not a candidate for donation. Patient is also not a candidate for [facility]. [facility] has released the body.
--- NOTE | 2023-04-09 05:59 | PC.NURSE ---
Patient at 0537 on 04/09/23. Confirmed by this nurse and Fabian Tavarez RN.
--- NOTE | 2023-04-09 08:26 | PM.DDS ---
Discharge Providers DDS Date of Admission: 04/07/23 00:36 Date Summary Completed: 04/19/23 Attending Provider at Admission: Ale Rao MD Attending Provider at Discharge: Ray Ramos MD Primary Care Provider: Roberto Laura MD DS Diagnoses Hospital Diagnoses (1) Metastases to the liver: (2) Lactic acidosis: (3) Anasarca: (4) Urinary tract infection: Qualifiers: Hematuria presence: with hematuria Urinary tract infection type: acute cystitis Qualified Code(s): N30.01 - Acute cystitis with hematuria (5) Edema: (6) Acute hyponatremia: (7) Leukocytosis: (8) Colonic mass: (9) Metastatic disease: (10) Acute renal insufficiency: (11) Acute renal failure: (12) Septic shock: (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 Patient has been experiencing increasing generalized malaise fatigue gait instability and weight loss over the past month.? She has had chronic diarrhea over the same timeframe.? She presented to the emergency room on March 31, 2023 with complaints of leg swelling and discomfort has been ongoing for the past 2 weeks.? She was found to have some bulla formation with drainage.? She was started on treatment with Lasix and received an empiric diagnosis of UTI for which she was treated with ciprofloxacin. She did not wish to stay in the hospital on this day. Today patient developed worsening abdominal pain, nausea and vomiting which prompted her daughters to bring her back to the emergency room.? She was noted to have multiple lab abnormalities including a sodium of 122, creatinine of 2.6, up from 0.6 on March 31, 2023, lactic acid of 6.0, hypocalcemia, deranged LFTs.? CT imaging of the abdomen and pelvis was obtained per my request after discussion with the ER physician which has shown a partially calcified mass within the cecum thought to represent a primary colon malignancy.? Severe hepatic metastatic disease largest nodule measuring 5.9 cm.? Nodularity along the greater omentum was suspicious for intraperitoneal metastases.? Numerous enlarged mesenteric lymph nodes were seen.? Incidentally noted pulmonary nodules on visualized images.? Chest x-ray below grossly normal. Patient has never had a screening colonoscopy in the past.? There is no past history of cancer.? No blood in stools as far as the daughter is aware.? Patient is diet currently and does not participate in history taking at this time.? Wishes to sleep.? No fever or chills. Patient was admitted to [facility] for metastatic colon cancer, to liver, to the lung, to the peritoneum, with acute renal failure, acute tubular necrosis, hyperkalemia, hyperphosphatemia, hyperuricemia, hyper natremia, acute liver failure, lactic acidosis, sepsis, septic shock, choledocholithiasis, UTI, NSTEMI, ATN, multiorgan failure, evidence of tumor lysis syndrome. Due to patient's significant deconditioned status, evidence of metastatic malignancy radiographically, and multiorgan failure, after extensive discussion with patient and family, and consultation with oncology, patient decided to proceed with comfort care, patient was made comfort care, patient's time of 04/09/2023 at 0550 Additional Data Confirmation of as documented by pronouncing clinician: no pulse, no respirations, no heart sounds and pupils fixed and dilated Family: at bedside Additional persons at bedside: nursing staff Attending/PCP notified?: I am attending Was code activated?: No Autopsy requested?: No Advance directives?: No Discharge Plan Discharge Patient Disposition: Condition: Stable DS Attestations Time Spent in /Discharge Care*: greater than 30 min Quality - AMI: AMI present?: No Quality - Stroke: CVA present?: No Quality - VTE: VTE present?: No Coding Level of Care Code 99914 Total time (in minutes) for Discharge: 45 Diagnoses Metastases to the liver C78.7 Lactic acidosis E87.20 Anasarca R60.1 Urinary tract infection N30.01 Hematuria presence: with hematuria Urinary tract infection type: acute cystitis Edema R60.9 Acute hyponatremia E87.1 Leukocytosis D72.829 Colonic mass K63.89 Metastatic disease C79.9 Acute renal insufficiency N28.9 Acute renal failure N17.9 Septic shock A41.9; R65.21 Tumor lysis syndrome E88.3 Hyperuricemia E79.0 Hypocalcemia E83.51 Acute hyperkalemia E87.5 Hyperphosphatemia E83.39 Admission for hospice care Z51.5 Atrial fibrillation I48.91 Transaminitis R74.01 Choledocholithiasis K80.50 Ascending cholangitis K83.09 Liver failure K72.90 Multiorgan failure Breast mass, right N63.10 Hyponatremia E87.1
== END 2023-04-09 12:00 | disposition expired | DRG 871 ==
LOC: ER 04-07 00:16 → CSU 04-07 00:36 → ICU 04-07 14:26 → MEDSURG 04-07 19:44
PROVIDERS: Admitting Provider Student in an Organized Health Care Education/Training Program; Emergency Provider Family Medicine; PCP Family Medicine; Visit Provider Family Medicine
DX: A41.9 Sepsis, unspecified organism (principal); I21.4 Non-ST elevation (NSTEMI) myocardial infarction; R65.21 Severe sepsis with septic shock; N17.0 Acute kidney failure with tubular necrosis; K72.00 Acute and subacute hepatic failure without coma; N30.01 Acute cystitis with hematuria; C18.0 Malignant neoplasm of cecum; C78.7 Secondary malignant neoplasm of liver and intrahepatic bile duct; C78.02 Secondary malignant neoplasm of left lung; C78.01 Secondary malignant neoplasm of right lung; C77.2 Secondary and unspecified malignant neoplasm of intra-abdominal lymph nodes; C78.6 Secondary malignant neoplasm of retroperitoneum and peritoneum; E87.1 Hypo-osmolality and hyponatremia; E87.20 Acidosis, unspecified; K83.09 Other cholangitis; K52.9 Noninfective gastroenteritis and colitis, unspecified; E87.6 Hypokalemia; K80.50 Calculus of bile duct without cholangitis or cholecystitis without obstruction; Z51.5 Encounter for palliative care; N63.10 Unspecified lump in the right breast, unspecified quadrant; R97.0 Elevated carcinoembryonic antigen [CEA]; Z80.3 Family history of malignant neoplasm of breast; I48.91 Unspecified atrial fibrillation
CPT/HCPCS: 36415; 36600; 51702; 71045; 71250; 74176; 76705; 80053; 80503; 81001; 82140; 82247; 82248; 82378; 82436; 82533; 82550; 82803; 82977; 83010; 83605; 83615; 83690; 83735; 84100; 84133; 84145; 84300; 84439; 84443; 84481; 84484; 84550; 85025; 85378; 86140; 87040; 93005; 93306; 93970; 96365; 96372; 96375; 99285; A4222; C9113; J0282; J0610; J0696; J1650; J1815; J1940; J2060; J2270; J2543; J3010; J7030; J7060